=== PATIENT | female | born 1970 | race Caucasian/White ===

== ENCOUNTER 2016-11-12 19:51 | Emergency (ER) | payer OTHER ==
[~2016-11-12] VITALS: Ht 165.1 cm; Wt 107.0 kg
[~2016-11-12 19:51] MED LIST: GABA100C4 PO; NEUR100C PO; QUET100 PO; SERO50TA4 PO
[2016-11-12 19:55] VITALS: BP 141/78; PULSE 130; RESP 18; TEMP 97; O2SAT 97
--- NOTE | 2016-11-13 11:36 | EKG ---
Date Performed: 11/12/2016 Time Performed: 20:30:53 PTAGE: 46 years EKG: Sinus rhythm LOW QRS VOLTAGE IN PRECORDIAL LEADS NONSPECIFIC T-WAVE ABNORMALITY BORDERLINE ECG NO PREVIOUS TRACING DOCTOR: Leonard Ye Interpretating Date/Time 11/13/2016 11:35:34
== END 2016-11-12 21:26 | disposition left against medical advice (07) ==
LOC: NED 19:51
DX: R07.9 Chest pain, unspecified (principal)
CPT/HCPCS: 93005; 99281

== ENCOUNTER 2017-03-20 12:13 | Emergency (ER) | payer OTHER ==
[~2017-03-20] VITALS: Ht 165.1 cm; Wt 110.1 kg
[2017-03-20 12:18] VITALS: BP 141/96; PULSE 93; RESP 16; TEMP 98.3; O2SAT 99
[2017-03-20] MEDS ORDERED: SODIUM CHLOR 0.9% 1000 ML INJ 1,000 ML IV SCH (13:09)
[2017-03-20] MEDS ORDERED: ONDANSETRON HCL 4 MG/2 ML VIAL IVP ONE (13:15)
[2017-03-20] MEDS ORDERED: SODIUM CHLORIDE 0.9% FLUSH 10 ML FLUSH IV FLUSH PRN (13:15)
[2017-03-20 13:28] LABS: AUTOMATED NEUTROPHIL # 3.7 TH/MM3 (1.8-7.7); BASOPHIL % 0.5 % (0.0-2.0); EOSINOPHIL # 0.1 TH/MM3 (0-0.4); EOSINOPHIL % 1.7 % (0.0-4.0); HEMATOCRIT 34.5 % (35.0-46.0); HEMO FLAGS DIFF FINAL; LYMPH % 28.3 % (9.0-44.0); LYMPHOCYTE # 1.8 TH/MM3 (1.0-4.8); MEAN CELL VOLUME 79.2 FL (80.0-100.0); MEAN CORPUSCULAR HEMOGLOBIN 26.8 PG (27.0-34.0); MEAN CORPUSCULAR HGB CONC 33.8 % (32.0-36.0); MONO % 10.7 % (0.0-8.0); NEUT % 58.8 % (16.0-70.0); PLATELET COUNT 306 TH/MM3 (150-450); RED BLOOD COUNT 4.36 MIL/MM3 (4.00-5.30); RED CELL DISTRIBUTION WIDTH 13.1 % (11.6-17.2); WHITE BLOOD COUNT 6.3 TH/MM3 (4.0-11.0)
[2017-03-20 13:36] VITALS: BP 143/81; PULSE 76; RESP 18; O2SAT 99
[2017-03-20 13:37] LABS: GLUCOSE,URINE NEG (NEG); KETONE, URINE NEG (NEG); NITRITE,URINE NEG (NEG); PH, URINE 5.5 (5.0-8.5)
[2017-03-20 13:38] LABS: CHLORIDE 107 MEQ/L (98-107); POTASSIUM 3.7 MEQ/L (3.5-5.1); SODIUM (NA) 141 MEQ/L (136-145)
[2017-03-20 13:42] LABS: ANION GAP 9 MEQ/L (5-15); BICARBONATE 25.4 MEQ/L (21.0-32.0); BLOOD UREA NITROGEN 9 MG/DL (7-18)
[2017-03-20 13:45] LABS: ALT (GPT) 32 U/L (10-53); AST (GOT) 21 U/L (15-37); GLOMERULAR FILTRATION RATE 48 ML/MIN (>89)
[2017-03-20 13:45] LABS: BLOOD, URINE MOD (NEG)
[2017-03-20 13:46] LABS: METHOD OF COLLECTION CLEAN CATCH; URINE COLOR YELLOW (YELLW/STRAW)
[2017-03-20 13:46] LABS: TOTAL BILIRUBIN ADULT 0.2 MG/DL (0.2-1.0)
[2017-03-20 13:47] LABS: BACTERIA, URINE MOD /hpf; COMMENT (UR) CULTURE INDICATED; CULTURE IF INDICATED CULTURE INDICATED; SQUAMOUS EPITHELIAL CELL URINE > 8 /hpf (0-5); WBC, URINE 0-2 /hpf (0-5)
[2017-03-20 13:48] LABS: ALKALINE PHOSPHATASE 64 U/L (45-117); CREATINE KINASE 114 U/L (26-192)
--- NOTE | 2017-03-20 13:50 | RADHPO ---
EXAM DATE/TIME: 03/20/2017 13:26 [facility] COMPARISON: No previous studies available for comparison. INDICATIONS : Patient states she feels her blood pressure isn't right. She hasn't had an appetite for a week. MEDICAL HISTORY : None. SURGICAL HISTORY : Cholecystectomy. ENCOUNTER: Initial ACUITY: 1 week PAIN SCORE: 0/10 LOCATION: Bilateral chest FINDINGS: A single view of the chest demonstrates the lungs to be symmetrically aerated without evidence of mas s, infiltrate or effusion. The cardiomediastinal contours are unremarkable. Osseous structures are intact. CONCLUSION: No acute disease. Lior Lynn MD on March 20, 2017 at 13:48 Board Certified Radiologist. This report was verified electronically.
[2017-03-20] MEDS ORDERED: ZOFR4TAB3 SL (13:57)
[2017-03-20 14:00] LABS: CKMB 0.9 NG/ML (0.5-3.6)
--- NOTE | 2017-03-20 14:00 | PD ---
HPI Chief Complaint: Hypertension Time Seen by Provider: 13:09 Travel History International Travel<30 days: No Contact w/Intl Traveler<30days: No Traveled to known affect area: No History of Present Illness HPI 46-year-old female with history of no significant past medical issues, has seen that her blood pressure has been [facility] presents to the ER today because she states that she has had 3 days history of nausea, intermittent vomiting, diarrhea, epigastric abdominal discomfort which she rates at 0 out of 10 currently. She states that she had some substernal chest discomfort that lasted only a minute and was a 5 out of 10 but has gone away and has not come back yesterday. She denies any shortness of breath, fevers, coughing, or any other symptoms. She does not of any sick contacts or bad food exposure. Modifying Factors: None Associated Signs & Symptoms: Nausea, vomiting, diarrhea, abdominal discomfort, chest discomfort Risk Factors: None PFSH Past Medical History Hx Anticoagulant Therapy: No Anxiety: Yes Depression: Yes Diabetes: No Endocrine: No Genitourinary: No Immune Disorder: No Musculoskeletal: No Neurologic: No Reproductive: No Respiratory: No Immunizations Current: Yes ?: Not Past Surgical History Abdominal Surgery: Yes (gallbladder) Cardiac Surgery: No Cholecystectomy: Yes Ear Surgery: No Endocrine Surgery: No Eye Surgery: No Genitourinary Surgery: No Gynecologic Surgery: No Oral Surgery: No Thoracic Surgery: No Other Surgery: Yes (bunectomy) Social History Alcohol Use: Yes Tobacco Use: No Substance Use: Yes (Marijuana, pt quit 8 months ago) Allergies-Medications (Allergen,Severity, Reaction): Coded Allergies: No Known Allergies (Unverified , 03/20/17) Reported Meds & Prescriptions Reported Meds & Active Scripts Active No Active Prescriptions or Reported Medications Review of Systems Except as stated in HPI: all other systems reviewed are Neg Physical Exam Narrative GENERAL: Well-developed middle age female patient currently in mild distress. Awake and oriented 3. SKIN: Focused skin assessment warm/dry. HEAD: Atraumatic. Normocephalic. EYES: Pupils equal and round. No scleral icterus. No injection or drainage. ENT: No nasal bleeding or discharge. Mucous membranes pink and moist. NECK: Trachea midline. No JVD. CARDIOVASCULAR: Regular rate and rhythm. No murmur appreciated. RESPIRATORY: No accessory muscle use. Clear to auscultation. Breath sounds equal bilaterally. GASTROINTESTINAL: Abdomen soft, non-tender, nondistended. Hepatic and splenic margins not palpable. Benign. MUSCULOSKELETAL: No obvious deformities. No clubbing. No cyanosis. No edema. NEUROLOGICAL: Awake and alert. No obvious cranial nerve deficits. Motor grossly within normal limits. Normal speech. PSYCHIATRIC: Appropriate mood and affect; insight and judgment normal. Data Data Last Documented VS Vital Signs Date Time Temp Pulse Resp B/P Pulse Ox O2 Delivery O2 Flow Rate FiO2 03/20/17 13:36 76 18 143/81 99 Room Air 03/20/17 12:18 98.3 Orders Complete Blood Count With Diff (03/20/17 13:09) Comprehensive Metabolic Panel (03/20/17 13:09) Lipase (03/20/17 13:09) Urinalysis - C+S If Indicated (03/20/17 13:09) Iv Access Insert/Monitor (03/20/17 13:09) Ecg Monitoring (03/20/17 13:09) Oximetry (03/20/17 13:09) Ondansetron Inj (Zofran Inj) (03/20/17 13:15) Sodium Chlor 0.9% 1000 Ml Inj (Ns 1000 M (03/20/17 13:09) Sodium Chloride 0.9% Flush (Ns Flush) (03/20/17 13:15) Electrocardiogram (03/20/17 13:09) Chest, Single Ap (03/20/17 13:09) Ckmb (Isoenzyme) Profile (03/20/17 13:09) Troponin I (03/20/17 13:09) Ed Urine Pregnancytest Poc (03/20/17 13:09) Influenzae A/B Antigen (03/20/17 13:10) Urine Culture (03/20/17 13:25) CKMB (03/20/17 13:22) CKMB% (03/20/17 13:22) Labs Laboratory Tests Test 03/20/17 03/20/17 13:22 13:25 White Blood Count 6.3 TH/MM3 Red Blood Count 4.36 MIL/MM3 Hemoglobin 11.7 GM/DL Hematocrit 34.5 % Mean Corpuscular Volume 79.2 FL Mean Corpuscular Hemoglobin 26.8 PG Mean Corpuscular Hemoglobin 33.8 % Concent Red Cell Distribution Width 13.1 % Platelet Count 306 TH/MM3 Mean Platelet Volume 7.3 FL Neutrophils (%) (Auto) 58.8 % Lymphocytes (%) (Auto) 28.3 % Monocytes (%) (Auto) 10.7 % Eosinophils (%) (Auto) 1.7 % Basophils (%) (Auto) 0.5 % Neutrophils # (Auto) 3.7 TH/MM3 Lymphocytes # (Auto) 1.8 TH/MM3 Monocytes # (Auto) 0.7 TH/MM3 Eosinophils # (Auto) 0.1 TH/MM3 Basophils # (Auto) 0.0 TH/MM3 CBC Comment DIFF FINAL Differential Comment Sodium Level 141 MEQ/L Potassium Level 3.7 MEQ/L Chloride Level 107 MEQ/L Carbon Dioxide Level 25.4 MEQ/L Anion Gap 9 MEQ/L Blood Urea Nitrogen 9 MG/DL Creatinine 1.20 MG/DL Estimat Glomerular Filtration 48 ML/MIN Rate Random Glucose 111 MG/DL Calcium Level 8.5 MG/DL Total Bilirubin 0.2 MG/DL Aspartate Amino Transf 21 U/L (AST/SGOT) Alanine Aminotransferase 32 U/L (ALT/SGPT) Alkaline Phosphatase 64 U/L Total Creatine Kinase 114 U/L Troponin I LESS THAN 0.02 NG/ML Total Protein 7.5 GM/DL Albumin 3.5 GM/DL Lipase 141 U/L Urine Collection Type CLEAN CATCH Urine Color YELLOW Urine Turbidity CLEAR Urine pH 5.5 Urine Specific [place] 1.021 Urine Protein NEG mg/dL Urine Glucose (UA) NEG mg/dL Urine Ketones NEG mg/dL Urine Occult Blood MOD Urine Nitrite NEG Urine Bilirubin NEG Urine Leukocyte Esterase NEG Urine RBC 10-14 /hpf Urine WBC 0-2 /hpf Urine Squamous Epithelial > 8 /hpf Cells Urine Bacteria MOD /hpf Microscopic Urinalysis Comment CULTURE INDICATED Urine Collection Time 13:25 [facility] Medical Decision Making Medical Screen Exam Complete: Yes Emergency Medical Condition: Yes Medical Record Reviewed: Yes Interpretation(s) EKG shows NSR, no ST elevation or depression, and no arrhythmias. No significant T-wave inversions. Laboratory Tests Test 03/20/17 03/20/17 13:22 13:25 Hematocrit 34.5 % (35.0-46.0) Mean Corpuscular Volume 79.2 FL (80.0-100.0) Mean Corpuscular Hemoglobin 26.8 PG (27.0-34.0) Monocytes (%) (Auto) 10.7 % (0.0-8.0) Creatinine 1.20 MG/DL (0.50-1.00) Estimat Glomerular Filtration 48 ML/MIN (>89) Rate Random Glucose 111 MG/DL (74-106) Troponin I LESS THAN 0.02 NG/ML (0.02-0.05) Urine Occult Blood MOD (NEG) Urine RBC 10-14 /hpf (0-3) Urine Squamous Epithelial > 8 /hpf (0-5) Cells Urine Bacteria MOD /hpf (NONE) Differential Diagnosis Nausea, vomiting, diarrhea, abdominal discomfort, elevated blood pressure hypertensive urgency versus dehydration versus renal failure versus gastroenteritis versus metabolic issues Narrative Course Abdomen is fairly benign and I do not suspect an acute intra-abdominal process. She had a fairly atypical sounding chest discomfort yesterday which I do not think is cardiac. EKG does not show any signs of acute ST-T changes or dysrhythmias. Her lab work did not indicate significant metabolic issues. Her vital signs are stable in the ER. Her blood pressures mildly elevated but at this point does not appear to present to the emergency. Patient may have some underlying viral processes causing her current symptoms. She is influenza- negative. She was given IV fluids and nausea medications in the ER. She had no further vomiting episodes. At this point my plan would be to release her with follow-up to primary care physician was to medic relief or nausea and vomiting. She may want to talk to her primary care physician regarding her elevated blood pressure as well for further evaluation. Return for any worsening in symptoms as necessary. The plan has been discussed with her and she states understanding. Diagnosis Primary Impression: Gastroenteritis Additional Impression: High blood pressure Med/Other Pt SpecificInfo: Prescription(s) given Scripts Ondansetron Odt (Zofran Odt)4 Mg Tab4 Mg SL Q6HR PRN (Nausea/Vomiting) #7 TAB Ref 0 Prov:Salma Carmen MD 03/20/17 Disposition: 01 DISCHARGE HOME Condition: Stable Salma Carmen MD March 20, 2017 13:59
[2017-03-20 14:22] VITALS: BP 141/81
--- NOTE | 2017-03-20 15:15 | EKG ---
Date Performed: 03/20/2017 Time Performed: 13:08:54 PTAGE: 46 years EKG: Sinus rhythm Low QRS voltages in precordial leads Borderline ECG NO SIGNIFICANT CHANGE FROM PRIOR ELECTROCARDIOGR AM. PREVIOUS TRACING : 11/12/2016 20.30 DOCTOR: Rodríguez Vicente Interpretating Date/Time 03/20/2017 15:15:09
== END 2017-03-20 14:44 | disposition home or self-care (01) ==
LOC: PHED 12:13
DX: K52.9 Noninfective gastroenteritis and colitis, unspecified (principal); R03.0 Elevated blood-pressure reading, without diagnosis of hypertension; F41.9 Anxiety disorder, unspecified; F32.9 Major depressive disorder, single episode, unspecified
CPT/HCPCS: 71010; 80053; 81001; 82550; 82552; 83690; 84484; 84703; 85025; 87086; 87804; 93005; 96374; 99284; J2405; J7030

== ENCOUNTER 2017-09-28 22:21 | Observation (INO) | payer OTHER ==
[~2017-09-28] VITALS: Ht 165.1 cm; Wt 90.0 kg
[~2017-09-28 22:21] MED LIST changes: -GABA100C4 PO; -NEUR100C PO; -QUET100 PO; -SERO50TA4 PO; +ZOFR4TAB3 SL
[2017-09-28 22:25] VITALS: BP 129/74; PULSE 88; RESP 16; TEMP 98.6; O2SAT 99
[2017-09-28 22:30] VITALS: RESP 16; O2SAT 99
[2017-09-28] MEDS ORDERED: ASPIRIN 325 MG TAB PO ONE (22:30)
[2017-09-28] MEDS ORDERED: SODIUM CHLORIDE 0.9% FLUSH 10 ML FLUSH IVF PRN (22:30)
[2017-09-28] MEDS: NITROGLYCERIN 0.4 MG SL 25 TABS/BTL SL SCH ×3 (22:35→22:44)
--- NOTE | 2017-09-28 22:44 | PD ---
HPI Chief Complaint: Chest Pain Time Seen by Provider: 22:27 Travel History International Travel<30 days: No Contact w/Intl Traveler<30days: No Traveled to known affect area: No History of Present Illness HPI 47-year-old female arrives by EMS due to chest tightness 5/10 in severity which started while she was lying in bed about an hour prior to ER arrival. She reports that the course today she had some vague nausea. Shortly before the onset of the chest tightness she had taken Tums feeling the urge to belch. EMS reports blood pressure to be about 150/90 on scene. Patient received nitroglycerin sprays 3 which reduced the pain severity over 5-4/10. Patient reports some shortness of breath while lying in bed prior to EMS arrival and en route to the ER. She denies currently caring a diagnosis of hypertension hyperlipidemia or diabetes however believes she might have elevated baseline blood sugar. She does not smoke. PFSH Past Medical History Hx Anticoagulant Therapy: No Anxiety: Yes (LAST PANIC ATTACK 4 YEARS AGO) Depression: Yes Diabetes: No Diminished Hearing: No Endocrine: No Genitourinary: No Immune Disorder: No Musculoskeletal: No Neurologic: No Reproductive: No Respiratory: No Immunizations Current: Yes Tetanus Vaccination: Unknown Influenza Vaccination: No ?: Not Past Surgical History Abdominal Surgery: Yes (gallbladder) Cardiac Surgery: No Cholecystectomy: Yes Ear Surgery: No Endocrine Surgery: No Eye Surgery: No Genitourinary Surgery: No Gynecologic Surgery: No Oral Surgery: No Thoracic Surgery: No Other Surgery: Yes (bunectomy) Social History Alcohol Use: Yes Tobacco Use: No Substance Use: Yes (Marijuana, pt quit 8 months ago) Allergies-Medications (Allergen,Severity, Reaction): Coded Allergies: No Known Allergies (Unverified Adverse Reaction, Unknown, 09/28/17) Reported Meds & Prescriptions Reported Meds & Active Scripts Active No Active Prescriptions or Reported Medications Review of Systems Except as stated in HPI: all other systems reviewed are Neg General / Constitutional: No: Fever Cardiovascular: Positive: Chest Pain or Discomfort Respiratory: Positive: Shortness of Breath Physical Exam Narrative GENERAL: 47-year-old female pleasant well-nourished well-developed SKIN: Focused skin assessment warm/dry. HEAD: Atraumatic. Normocephalic. EYES: Pupils equal and round. No scleral icterus. No injection or drainage. ENT: No nasal bleeding or discharge. Mucous membranes pink and moist. NECK: Trachea midline. No JVD. CARDIOVASCULAR: Regular rate and rhythm. No murmur appreciated. RESPIRATORY: No accessory muscle use. Clear to auscultation. Breath sounds equal bilaterally. GASTROINTESTINAL: Abdomen soft, non-tender, nondistended. Hepatic and splenic margins not palpable. MUSCULOSKELETAL: No obvious deformities. No clubbing. No cyanosis. No edema. NEUROLOGICAL: Awake and alert. No obvious cranial nerve deficits. Motor grossly within normal limits. Normal speech. PSYCHIATRIC: Appropriate mood and affect; insight and judgment normal. Data Data Last Documented VS Vital Signs Date Time Temp Pulse Resp B/P (MAP) Pulse Ox O2 Delivery O2 Flow Rate FiO2 09/28/17:30 99 Room Air 09/28/17 22:30 16 09/28/17 22:27 73 09/28/17 22:25 98.6 129/74 (92) Vital signs reviewed Orders Orders Electrocardiogram (09/28/17 22:) Ckmb (Isoenzyme) Profile (09/28/17 22:27) Complete Blood Count With Diff (09/28/17 22:27) Comprehensive Metabolic Panel (09/28/17 22:27) Magnesium (Mg) (09/28/17 22:27) Prothrombin Time / Inr (Pt) (09/28/17 22:27) Act Partial Throm Time (Ptt) (09/28/17 22:27) Troponin I (09/28/17 22:27) Lipase (09/28/17 22:27) Chest, Single Ap (09/28/17 22:27) Ecg Monitoring (09/28/17 22:27) Iv Access Insert/Monitor (09/28/17 22:27) Oximetry (09/28/17 22:27) Oxygen Administration (09/28/17 22:27) Aspirin (Aspirin) (09/28/17 22:30) Sodium Chloride 0.9% Flush (Ns Flush) (09/28/17 22:30) Nitroglycerin Sl (Nitrostat Sl) (09/28/17 22:30) Ct Pulmonary Angiogram (09/28/17 22:39) Iohexol 350 Inj (Omnipaque 350 Inj) (09/28/17 23:58) Place In Observation (09/29/17 00:42) Activity Bed Rest With Brp (09/29/17 00:42) Vital Signs (Adult) Q4H (09/29/17 00:42) Cardiac Rhythm .As Directed (09/29/17 00:42) Notify Dr: Other .PRN (09/29/17 00:42) Notify DrJo Ann Parameters (09/29/17 00:42) Resp Oxygen Nasal Cannula (09/29/17 ) Diet Npo (09/29/17 Breakfast) Ckmb (Isoenzyme) Profile (09/29/17 00:42) Ckmb (Isoenzyme) Profile (09/29/17 03:42) Troponin I (09/29/17 00:42) Troponin I (09/29/17 03:42) Electrocardiogram (09/29/17 00:42) Electrocardiogram (09/29/17 03:42) ^ Obtain (09/29/17 00:42) Sodium Chloride 0.9% Flush (Ns Flush) (09/29/17 00:45) Sodium Chloride 0.9% Flush (Ns Flush) (09/29/17 09:00) Acetamin-Hydrocod 325-7.5 Mg ([place] 7.5 (09/29/17 00:45) Morphine Inj (Morphine Inj) (09/29/17 00:45) Ondansetron Inj (Zofran Inj) (09/29/17 00:45) Nitroglycerin Sl (Nitrostat Sl) (09/29/17 00:45) Aspirin (Aspirin) (09/29/17 09:00) Temazepam (Restoril) (09/29/17 00:45) Alprazolam (Xanax) (09/29/17 00:45) Technology Applications Consultant / Telemetry [id number] (09/29/17 00:42) Admit Order (Ed Use Only) (09/29/17 00:42) Labs Laboratory Tests Test 09/28/17 22:38 White Blood Count 9.3 TH/MM3 Red Blood Count 4.42 MIL/MM3 Hemoglobin 11.5 GM/DL Hematocrit 35.7 % Mean Corpuscular Volume 80.8 FL Mean Corpuscular Hemoglobin 26.1 PG Mean Corpuscular Hemoglobin Concent 32.4 % Red Cell Distribution Width 14.4 % Platelet Count 304 TH/MM3 Mean Platelet Volume 7.6 FL Neutrophils (%) (Auto) 58.4 % Lymphocytes (%) (Auto) 28.5 % Monocytes (%) (Auto) 9.8 % Eosinophils (%) (Auto) 2.4 % Basophils (%) (Auto) 0.9 % Neutrophils # (Auto) 5.5 TH/MM3 Lymphocytes # (Auto) 2.7 TH/MM3 Monocytes # (Auto) 0.9 TH/MM3 Eosinophils # (Auto) 0.2 TH/MM3 Basophils # (Auto) 0.1 TH/MM3 CBC Comment DIFF FINAL Differential Comment Prothrombin Time 10.4 SEC Prothromb Time International Ratio 0.9 RATIO Activated Partial Thromboplast Time 25.5 SEC Blood Urea Nitrogen 12 MG/DL Creatinine 0.91 MG/DL Random Glucose 115 MG/DL Total Protein 7.2 GM/DL Albumin 3.1 GM/DL Calcium Level 8.2 MG/DL Magnesium Level 1.9 MG/DL Alkaline Phosphatase 66 U/L Aspartate Amino Transf (AST/SGOT) 22 U/L Alanine Aminotransferase (ALT/SGPT) 23 U/L Total Bilirubin 0.2 MG/DL Sodium Level 139 MEQ/L Potassium Level 3.8 MEQ/L Chloride Level 109 MEQ/L Carbon Dioxide Level 23.0 MEQ/L Anion Gap 7 MEQ/L Estimat Glomerular Filtration Rate 66 ML/MIN Total Creatine Kinase 58 U/L Troponin I LESS THAN 0.02 NG/ML Lipase 165 U/L MDM Medical Decision Making Medical Screen Exam Complete: Yes Emergency Medical Condition: Yes Medical Record Reviewed: Yes Differential Diagnosis NSTEMI, unstable angina, coronary vasospasm, PE, PTX, aortic dissection, pericarditis, myocarditis, endocarditis, PNA, esophageal disease, aneurysm, musculoskeletal etiologies, anxiety, cocaine/sympathomimetic abuse Narrative Course EKG shows a sinus rhythm with a rate of 80 normal axis intervals CBC & BMP Diagram 09/28/17 22:38 Total Protein 7.2, Albumin 3.1 L, Calcium Level 8.2 L, Magnesium Level 1.9, Alkaline Phosphatase 66, Aspartate Amino Transf (AST/SGOT) 22, Alanine Aminotransferase (ALT/SGPT) 23, Total Bilirubin 0.2 CXR: NACPD Last Impressions CT Angiography 09/28/17 [id number] Signed Impressions: Service Date/Time: Thursday, September 28, 2017 23:59 - CONCLUSION: No pulmonary embolus or other acute cardiopulmonary disease. Royce Serna MD Chest X-Ray 09/28/17 [id number] Signed Impressions: Service Date/Time: Thursday, September 28, 2017 22:44 - CONCLUSION: No evidence of acute cardiopulmonary disease. Royce Serna MD Overall presentation is somewhat concerning for coronary disease and chest pain center evaluation is considered most reasonable step for patient's complaint. Diagnosis Primary Impression: Chest pain Qualified Codes: R07.9 - Chest pain, unspecified Admitting Information Admitting Physician Requests: Observation Scripts No Active Prescriptions or Reported Meds Sang Wong MD Sep 28, 2017 22:44
[2017-09-28 22:50] LABS: AUTOMATED NEUTROPHIL # 5.5 TH/MM3 (1.8-7.7); BASOPHIL # 0.1 TH/MM3 (0-0.2); BASOPHIL % 0.9 % (0.0-2.0); EOSINOPHIL # 0.2 TH/MM3 (0-0.4); EOSINOPHIL % 2.4 % (0.0-4.0); HEMATOCRIT 35.7 % (35.0-46.0); HEMO FLAGS DIFF FINAL; LYMPH % 28.5 % (9.0-44.0); LYMPHOCYTE # 2.7 TH/MM3 (1.0-4.8); MEAN CELL VOLUME 80.8 FL (80.0-100.0); MEAN CORPUSCULAR HEMOGLOBIN 26.1 PG (27.0-34.0); MEAN CORPUSCULAR HGB CONC 32.4 % (32.0-36.0); MONO % 9.8 % (0.0-8.0); NEUT % 58.4 % (16.0-70.0); PLATELET COUNT 304 TH/MM3 (150-450); RED BLOOD COUNT 4.42 MIL/MM3 (4.00-5.30); RED CELL DISTRIBUTION WIDTH 14.4 % (11.6-17.2); WHITE BLOOD COUNT 9.3 TH/MM3 (4.0-11.0)
[2017-09-28 23:00] LABS: APTT (PATIENT) 25.5 SEC (24.3-30.1); INTERNATIONAL NORMALIZED RATIO 0.9 RATIO; PROTHROMBIN TIME - PATIENT 10.4 SEC (9.8-11.6)
[2017-09-28 23:02] LABS: ALT (GPT) 23 U/L (10-53); ANION GAP 7 MEQ/L (5-15); AST (GOT) 22 U/L (15-37); BLOOD UREA NITROGEN 12 MG/DL (7-18); CHLORIDE 109 MEQ/L (98-107); GLOMERULAR FILTRATION RATE 66 ML/MIN (>89); MAGNESIUM 1.9 MG/DL (1.5-2.5); POTASSIUM 3.8 MEQ/L (3.5-5.1); SODIUM (NA) 139 MEQ/L (136-145)
[2017-09-28 23:06] LABS: ALKALINE PHOSPHATASE 66 U/L (45-117); TOTAL BILIRUBIN ADULT 0.2 MG/DL (0.2-1.0)
[2017-09-28 23:07] LABS: CREATINE KINASE 58 U/L (26-192)
[2017-09-28] MEDS ORDERED: IOHEXOL 350 MG/ML 10 ML VIAL (for RAD DIAG) IVCONTRAST ONE (23:58)
--- NOTE | 2017-09-29 00:20 | RADRPT ---
EXAM DATE/TIME: 09/28/2017 22:44 [facility] COMPARISON: No previous studies available for comparison. INDICATIONS : Chest pain. MEDICAL HISTORY : None. SURGICAL HISTORY : Cholecystectomy. ENCOUNTER: Initial ACUITY: 1 day PAIN SCORE: 0/10 LOCATION: Bilateral chest FINDINGS: A single view of the chest demonstrates the lungs to be symmetrically aerated without evidence of mas s, infiltrate or effusion. The cardiomediastinal contours are unremarkable. Osseous structures are intact. CONCLUSION: No evidence of acute cardiopulmonary disease. Royce Serna MD on September 29, 2017 at 0:18 Board Certified Radiologist. This report was verified electronically.
--- NOTE | 2017-09-29 00:22 | RADRPT ---
EXAM DATE/TIME: 09/28/2017 23:59 [facility] COMPARISON: CHEST SINGLE AP, September 28, 2017, 22:44. INDICATIONS : Chest pain. Evaluate for embolism. IV CONTRAST: 75 cc Omnipaque 350 (iohexol) IV RADIATION DOSE: 23.50 CTDIvol (mGy) MEDICAL HISTORY : Cardiovascular disease. Seizures. SURGICAL HISTORY : Cholecystectomy. ENCOUNTER: Initial ACUITY: 1 day PAIN SCALE: 7/10 LOCATION: chest TECHNIQUE: Volumetric scanning of the chest was performed using a pulmonary embolism protocol MIP images were re constructed. Using automated exposure control and adjustment of the mA and/or kV according to patien t size, radiation dose was kept as low as reasonably achievable to obtain optimal diagnostic quality images. DICOM format image data is available electronically for review and comparison. Follow-up recommendations for detected pulmonary nodules are based at a minimum on nodule size and pa tient risk factors according to Fleischner Society Guidelines. FINDINGS: PULMONARY ARTERIES: No filling defects are seen in the pulmonary arteries through the segmental level. LUNGS: There is no consolidation or pneumothorax . No concerning pulmonary nodule is visualized. PLEURAE: There is no pleural thickening or pleural effusion. MEDIASTINUM: There is good visualization of the great vessels of the middle mediastinum. No evidence of mediastin al or hilar adenopathy/mass. MUSCULOSKELETAL: Within normal limits for patient age. MISCELLANEOUS: The visualized upper abdominal organs demonstrate no acute abnormality. CONCLUSION: No pulmonary embolus or other acute cardiopulmonary disease. Royce Serna MD on September 29, 2017 at 0:20 Board Certified Radiologist. This report was verified electronically.
[2017-09-29] MEDS ORDERED: MORPHINE SULFATE 4 MG/ML INJ IV PUSH PRN (00:45)
[2017-09-29] MEDS ORDERED: ALPRAZolam 0.25 MG TAB PO PRN (00:45)
[2017-09-29] MEDS ORDERED: NITROGLYCERIN 0.4 MG SL 25 TABS/BTL SL PRN (00:45)
[2017-09-29] MEDS ORDERED: ONDANSETRON HCL 4 MG/2 ML VIAL IV PUSH PRN (00:45)
[2017-09-29] MEDS ORDERED: SODIUM CHLORIDE 0.9% FLUSH 10 ML FLUSH IV FLUSH PRN (00:45)
[2017-09-29] MEDS ORDERED: TEMAZEPAM 15 MG CAP PO PRN (00:45)
[2017-09-29] MEDS ORDERED: ACETAMINOPHEN/HYDROcodone 325 MG/7.5 MG TAB PO PRN (00:45)
[2017-09-29 01:56] LABS: CREATINE KINASE 53 U/L (26-192)
[2017-09-29 02:20] VITALS: BP 118/60; PULSE 68; RESP 18; TEMP 98.7; O2SAT 98
[2017-09-29 04:32] VITALS: PULSE 82
[2017-09-29 05:46] LABS: CREATINE KINASE 43 U/L (26-192)
[2017-09-29 06:27] VITALS: BP 123/68; PULSE 63; RESP 18; TEMP 98.4; O2SAT 99
[2017-09-29 07:39] VITALS: PULSE 114
[2017-09-29] MEDS ORDERED: ACETAMINOPHEN 500 MG CPLT PO PRN (08:00)
--- NOTE | 2017-09-29 08:32 | HHI.HP ---
HPI Primary Care Physician No Primary Care Physician Chief Complaint Chest pain History of Present Illness 47-year-old female with history of anxiety, panic attacks, and a borderline diabetic presents to emergency room for further evaluation of chest heaviness. Onset 9 PM. Reports laying in bed and developed feelings of ingestion. She took some Tums without relief. She laid down again before developing chest heaviness. Associated symptoms included nausea, followed by disorientation, palpitations, and feeling short of breath. Duration 2 minutes. Denied vomiting or diaphoresis. Endorses past pack attacks although this episode did not feel like her past panic attacks. Became concerned and called [facility]. Currently reports substernal chest to "feel mildly sore." No known precipitating or relieving factors. Review of Systems General: No fatigue,weakness, fever, chills, recent illness, or change in appetite. HEENT: No LOCKE, no nasal congestion or drainage, no dysphasia CV: As stated above. Reporting mild substernal chest soreness. No further palpitations. RESP: No SOB, cough, wheeze, recent URI, or history of asthma. GI: No nausea, vomiting, or bowel changes. No unintentional weight gain or weight loss. : No dysuria, urgency, frequency, or frequent UTI EXT: No lower leg edema, no paraesthesias MS: No discomfort or change in ROM. NEURO: No change in memory, dizziness, difficulty with balance, LOC, motor/ sensory deficits PSYCH: No anxiety, depression, or current situational stress. SKIN: No rashes, no concerning lesions Past Family Social History Allergies: Coded Allergies: No Known Allergies (Unverified Allergy, Unknown, 09/29/17) Past Medical History Anxiety, depression, panic attack, borderline diabetic Past Surgical History Cholecystectomy Reported Medications Reported Meds & Active Scripts Active No Active Prescriptions or Reported Medications Active Ordered Medications Current Medications Medications (Trade) Dose Ordered Sig/[place] Route Start Time Stop Time Status Last Admin (NS Flush) 2 ml UNSCH PRN IVF 09/28/17 22:30 (NS Flush) 2 ml UNSCH PRN IV FLUSH 09/29/17 00:45 (NS Flush) 2 ml BID IV FLUSH 09/29/17 09:00 (Anna 7.5-325 Mg) 1 tab Q4H PRN PO 09/29/17 00:45 (Morphine Inj) 2 mg Q4H PRN IV PUSH 09/29/17 00:45 (Zofran Inj) 4 mg Q6H PRN IV PUSH 09/29/17 00:45 (Nitrostat Sl) 0.4 mg Q5M PRN SL 09/29/17 00:45 (Aspirin) 325 mg DAILY PO 09/29/17 09:00 (Restoril) 15 mg HS PRN PO 09/29/17 00:45 (Xanax) 0.25 mg Q8H PRN PO 09/29/17 00:45 09/29/17 02:11 (Tylenol) 500 mg Q4H PRN PO 09/29/17 08:00 Social History Borderline diabetic. No known hypertension or hyperlipidemia. Lifelong nonsmoker. Denies any alcohol. Endorses a sedentary lifestyle. Single. Past cardiac testing None Physical Exam Vital Signs Vital Signs Date Time Temp Pulse Resp B/P (MAP) Pulse Ox O2 Delivery O2 Flow Rate FiO2 09/29/17 07:39 114 09/29/17 06:27 98.4 63 18 123/68 (86) 99 09/29/17 04:32 82 09/29/17 02:20 98.7 68 18 118/60 (79) 98 09/28/17 22:30 99 Room Air 09/28/17 22:30 16 99 Room Air 09/28/17 22:27 73 09/28/17 22:25 98.6 88 16 129/74 (92) 99 Physical Exam GENERAL: Alert WN, WD, NAD, pleasant, obese female HEAD: NC, AT EYES: Sclera clear, conjunctiva without injection, pupils equal and round ENT: Mucous membranes pink and moist CV: RRR, without murmur, rub, gallop, no JVD, S1-S2 no S3-S4. RESP: Clear lungs throughout bilateral, no crackles, wheeze, rhonchi, symmetrical chest rise, nonlabored, able to speak in full sentences ABD: Soft, NT, ND, no masses, positive bowel tones, obese EXT: Pulses +24, trace pedal edema MS: Normal tone 4 extremities, no obvious deformities, full range of motion NEURO: CN II through CN XII grossly intact, motor strength 5/5 PSYCH: A+O 3, pleasant affect, appropriate speech, appropriate mood and affect , insight and judgment SKIN: Normal turgor, normal texture, no lesions, no rashes, brisk cap refill, even hair distribution Laboratory Laboratory Tests Test 09/28/17 22:38 09/29/17 01:25 09/29/17 04:40 White Blood Count 9.3 Red Blood Count 4.42 Hemoglobin 11.5 Hematocrit 35.7 Mean Corpuscular Volume 80.8 Mean Corpuscular Hemoglobin 26.1 Mean Corpuscular Hemoglobin Concent 32.4 Red Cell Distribution Width 14.4 Platelet Count 304 Mean Platelet Volume 7.6 Neutrophils (%) (Auto) 58.4 Lymphocytes (%) (Auto) 28.5 Monocytes (%) (Auto) 9.8 Eosinophils (%) (Auto) 2.4 Basophils (%) (Auto) 0.9 Neutrophils # (Auto) 5.5 Lymphocytes # (Auto) 2.7 Monocytes # (Auto) 0.9 Eosinophils # (Auto) 0.2 Basophils # (Auto) 0.1 CBC Comment DIFF FINAL Differential Comment Prothrombin Time 10.4 Prothromb Time International Ratio 0.9 Activated Partial Thromboplast Time 25.5 Blood Urea Nitrogen 12 Creatinine 0.91 Random Glucose 115 Total Protein 7.2 Albumin 3.1 Calcium Level 8.2 Magnesium Level 1.9 Alkaline Phosphatase 66 Aspartate Amino Transf (AST/SGOT) 22 Alanine Aminotransferase (ALT/SGPT) 23 Total Bilirubin 0.2 Sodium Level 139 Potassium Level 3.8 Chloride Level 109 Carbon Dioxide Level 23.0 Anion Gap 7 Estimat Glomerular Filtration Rate 66 Total Creatine Kinase 58 53 43 Troponin I LESS THAN 0.02 LESS THAN 0.02 LESS THAN 0.02 Lipase 165 Result Diagram: 09/28/17223709/28/172237 Imaging Last Impressions CT Angiography 09/28/172238 Signed Impressions: Service Date/Time: Thursday, September 28, 2017 23:59 - CONCLUSION: No pulmonary embolus or other acute cardiopulmonary disease. Royce Serna MD Chest X-Ray 09/28/172226 Signed Impressions: Service Date/Time: Thursday, September 28, 2017 22:44 - CONCLUSION: No evidence of acute cardiopulmonary disease. Royce Serna MD Course EKG Sinus rhythm, normal axis, no ST or T-segment changes Caprini VTE Risk Assessment Caprini VTE Risk Assessment: No/Low Risk (score <= 1) Caprini Risk Assessment Model Point Value = 1 Point Value = 2 Point Value = 3 Point Value = 5 Age 41-60 Minor surgery BMI > 25 kg/m2 Swollen legs Varicose veins or History of unexplained or recurrent spontaneous Oral contraceptives or hormone replacement Sepsis (< 1 month) Serious lung disease, including pneumonia (< 1 month) Abnormal pulmonary function Acute myocardial infarction Congestive heart failure (< 1 month) History of inflammatory bowel disease Medical patient at bed rest Age 61-74 Arthroscopic surgery Major open surgery (> 45 min) Laparoscopic surgery (> 45 min) Malignancy Confined to bed (> 72 hours) Immobilizing plaster cast Central venous access Age >= 75 History of VTE Family history of VTE Factor V Leiden Prothrombin [id number] Lupus anticoagulant Anticardiolipin antibodies Elevated serum homocysteine Heparin-induced thrombocytopenia Other congenital or acquired thrombophilia Stroke (< 1 month) Elective arthroplasty Hip, pelvis, or leg fracture Acute spinal cord injury (< 1 month) Prophylaxis Regimen Total Risk Factor Score Risk Level Prophylaxis Regimen 0-1 Low Early ambulation 2 Moderate Order ONE of the following: *Sequential Compression Device (SCD) *Heparin 5000 units SQ BID 3-4 Higher Order ONE of the following medications: *Heparin 5000 units SQ TID *Enoxaparin/Lovenox 40 mg SQ daily (WT < 150 kg, CrCl > 30 mL/min) *Enoxaparin/Lovenox 30 mg SQ daily (WT < 150 kg, CrCl > 10-29 mL/min) *Enoxaparin/Lovenox 30 mg SQ BID (WT < 150 kg, CrCl > 30 mL/min) AND/OR *Sequential Compression Device (SCD) 5 or more Highest Order ONE of the following medications: *Heparin 5000 units SQ TID (Preferred with Epidurals) *Enoxaparin/Lovenox 40 mg SQ daily (WT < 150 kg, CrCl > 30 mL/min) *Enoxaparin/Lovenox 30 mg SQ daily (WT < 150 kg, CrCl > 10-29 mL/min) *Enoxaparin/Lovenox 30 mg SQ BID (WT < 150 kg, CrCl > 30 mL/min) AND *Sequential Compression Device (SCD) Assessment and Plan Assessment and Plan #1 Atypical chest pain-admitted to chest pain center. Ruled out with 3 sets of EKGs, cardiac enzymes, and monitored overnight. Seen and evaluated by Dr. Salomon Newell. Reassurance provided, discomfort highly suggestive of a panic attack. Proceed with chemical stress test. If cardiac testing unremarkable, plans to discharge later this morning with follow-up with PCP. Patient agreeable plan of care. #2 Borderline diabetic-discussed in length importance of decreasing sugar/flour intake, sugary drinks, increasing her daily activity, and working on weight loss. Education provided and made aware diabetes is a progressive disease, therefore all her efforts to reduce progressive of disease highly encouraged. #3 Anxiety-resolved, notify PCP of her arrival to ED keeping scheduled appointment next week Jennifer Kilpatrick Sep 29, 2017 08:32
[2017-09-29] MEDS ORDERED: ASPIRIN 325 MG TAB PO SCH ×2 (09:00)
[2017-09-29] MEDS ORDERED: SODIUM CHLORIDE 0.9% FLUSH 10 ML FLUSH IV FLUSH SCH (09:00)
[2017-09-29 09:53] VITALS: BP 118/62; PULSE 85; RESP 16; TEMP 98; O2SAT 98
--- NOTE | 2017-09-29 11:30 | HHI.DCPOC ---
Discharge Care Plan Diagnosis: (1) Atypical chest pain (2) Situational stress Goals to Promote Your Health * To prevent worsening of your condition and complications * To maintain your health at the optimal level Directions to Meet Your Goals Take your medications as prescribed Follow your dietary instruction Follow activity as directed Keep your appointments as scheduled Take your immunizations and boosters as scheduled If your symptoms worsen call your PCP, if no PCP go to Urgent Care Center or Emergency Room Smoking is Dangerous to Your Health. Avoid second hand smoke Call the 24-hour hour crisis hotline for domestic abuse at Jennifer Kilpatrick Sep 29, 2017 11:30
--- NOTE | 2017-09-29 14:30 | EKG ---
Date Performed: 09/29/2017 Time Performed: 04:56:48 PTAGE: 47 years EKG: Sinus rhythm WITH SINUS ARRHYTHMIA LOW QRS VOLTAGE IN PRECORDIAL LEADS BORDERLINE ECG PREVIOUS TRACING : 09/29/2017 01.24 Since previous tracing, no significant change noted DOCTOR: Salomon Newell Interpretating Date/Time 09/29/2017 14:28:46
--- NOTE | 2017-09-29 14:31 | EKG ---
Date Performed: 09/29/2017 Time Performed: 01:24:40 PTAGE: 47 years EKG: Sinus rhythm WITH SINUS ARRHYTHMIA LOW QRS VOLTAGE IN PRECORDIAL LEADS BORDERLINE ECG PREVIOUS TRACING : 09/28/2017 22.28 Since previous tracing, no significant change noted DOCTOR: Salomon Newell Interpretating Date/Time 09/29/2017 14:30:17
--- NOTE | 2017-09-29 14:31 | EKG ---
Date Performed: 09/28/2017 Time Performed: 22:28:35 PTAGE: 47 years EKG: Sinus rhythm LOW QRS VOLTAGE IN PRECORDIAL LEADS BORDERLINE ECG PREVIOUS TRACING : 09/28/2017 22.28 Since previous tracing, no significant change noted DOCTOR: Salomon Newell Interpretating Date/Time 09/29/2017 14:30:48
--- NOTE | 2017-09-29 14:33 | TR ---
Date Performed: 09/29/2017 Time Performed: 11:06:22 DOCTOR: Salomon Newell DRUG LIST: CLINICAL HISTORY: CHEST PAIN REASON FOR TEST: REASON FOR ENDING: OBSERVATION: CONCLUSION: Martinez protocol completed. Stopped sec to exceeding target heart rate and leg fatigue . Maximum FM=963 Target HR Achieved=98.0% Maximum LT=655/68 Total Exercise Time=5:00. No reprod chest pain. No ectopy. No st t segment changes to sugg ischemia. Good exercise tolerance. Normal bp respon se. Recovery quick and unremarkable. COMMENTS: Patient exercised using the Martinez protocol. No electrocardiographic changes were seen to suggest ischemia. Hemodynamic response to exercise was normal. No significant arrhythmia was prese nt.
== END 2017-09-29 13:03 | disposition home or self-care (01) ==
LOC: NEPC 22:21 → NEDA 09-29 00:44 → NEPGCP 09-29 01:39
DX: R07.9 Chest pain, unspecified (principal); R73.03 Prediabetes; R11.0 Nausea; F41.0 Panic disorder [episodic paroxysmal anxiety]; E66.9 Obesity, unspecified; R94.31 Abnormal electrocardiogram [ECG] [EKG]
CPT/HCPCS: 71010; 71275; 80053; 82550; 83690; 83735; 84484; 85025; 85610; 85730; 93005; 93017; 99285; G0378; Q9967

== ENCOUNTER 2017-11-14 00:27 | Emergency (ER) | payer OTHER ==
[~2017-11-14] VITALS: Ht 165.1 cm; Wt 105.0 kg
[2017-11-14 00:28] VITALS: BP 128/103; PULSE 75; RESP 16; TEMP 98.1; O2SAT 99
--- NOTE | 2017-11-14 01:02 | PD ---
HPI Chief Complaint: Cold / Flu Symptoms Time Seen by Provider: 00:55 Travel History International Travel<30 days: No Contact w/Intl Traveler<30days: No Traveled to known affect area: No History of Present Illness HPI 47-year-old female presents to emergency department for evaluation of cough and chest congestion. Patient states that last week she was diagnosed with the flu from her primary care provider. She was prescribed codeine cough syrup. She states that her cough has progressed and she feels like it is in her chest. She is concerned she may have pneumonia. Has had subjective fever and chills. Denies any nausea, vomiting, diarrhea. She has no other symptoms to report. PFSH Past Medical History Hx Anticoagulant Therapy: No Anxiety: Yes (LAST PANIC ATTACK 4 YEARS AGO) Depression: Yes Heart Rhythm Problems: No Cardiac Catheterization: No Cardiovascular Problems: No High Cholesterol: No Congestive Heart Failure: No Diabetes: No Diminished Hearing: No Endocrine: No Gastrointestinal Disorders: No Genitourinary: No Heparin Induced Thrombocytopen: No Hypertension: No Immune Disorder: No Implanted Vascular Access Dvce: No Musculoskeletal: No Neurologic: No Reproductive: No Respiratory: No Immunizations Current: Yes Tetanus Vaccination: Unknown Influenza Vaccination: No ?: Unknown Past Surgical History Abdominal Surgery: Yes (gallbladder) Cardiac Surgery: No Cholecystectomy: Yes Coronary Artery Bypass Graft: No Ear Surgery: No Endocrine Surgery: No Eye Surgery: No Genitourinary Surgery: No Gynecologic Surgery: No Neurologic Surgery: No Oral Surgery: No Thoracic Surgery: No Other Surgery: Yes (bunectomy) Family History Family Myocardial Infarction: Yes (Brother age 40's) Social History Alcohol Use: Yes Tobacco Use: No Substance Use: Yes (Marijuana, pt quit 8 months ago) Allergies-Medications (Allergen,Severity, Reaction): Coded Allergies: No Known Allergies (Unverified Allergy, Unknown, 11/14/17) Reported Meds & Prescriptions Reported Meds & Active Scripts Active Tessalon Perles (Benzonatate) 100 Mg Cap 200 Mg PO TID PRN Ventolin Hfa 18 GM Inh (Albuterol Sulfate) 90 Mcg/Act Aer 2 Puff INH Q4HR PRN Prednisone 50 Mg Tab 50 Mg PO DAILY 5 Days Review of Systems Except as stated in HPI: all other systems reviewed are Neg Physical Exam Narrative GENERAL: Well-nourished, well-developed male patient in no acute distress. SKIN: Focused skin assessment warm/dry. HEAD: Normocephalic. EYES: No scleral icterus. No injection or drainage. ENT: Mucosa pink and moist. Erythema without exudates. No uvular edema. No uvular, palatal, or tonsillar deviation. Airway patent. Nasal turbinates appear normal without nasal blood, purulent drainage or septal hematoma. NECK: Supple, trachea midline. Mild anterior cervical lymphadenopathy. CARDIOVASCULAR: Regular rate and rhythm without murmurs, gallops, or rubs. RESPIRATORY: Breath sounds coarse but clear to cough, equal bilaterally. No accessory muscle use. GASTROINTESTINAL: Abdomen soft, non-tender, nondistended. MUSCULOSKELETAL: No cyanosis, or edema. BACK: Nontender without obvious deformity. No CVA tenderness. Data Data Last Documented VS Vital Signs Date Time Temp Pulse Resp B/P (MAP) Pulse Ox O2 Delivery O2 Flow Rate FiO2 11/14/17 02:21 11/14/17 01:20 98 21 11/14/17 00:28 98.1 75 16 Room Air Orders Orders Influenzae A/B Antigen (11/14/17 01:07) Group A Rapid Strep Screen (11/14/17 01:07) Dexamethasone Inj (Decadron Inj) (11/14/17 01:15) Albuterol-Ipratropium Neb (Duoneb Neb) (11/14/17 01:15) Chest, Single Ap (11/14/17 ) Strep Culture (Group A) (11/14/17 01:20) Ed Discharge Order (11/14/17 02:04) MDM Medical Decision Making Medical Screen Exam Complete: Yes Emergency Medical Condition: Yes Medical Record Reviewed: Yes Differential Diagnosis Pneumonia versus influenza versus bronchitis versus, cold Narrative Course 47-year-old female presents emergency department for evaluation. Patient appears without distress. Vital signs are stable. She is given a DuoNeb treatment and IM Decadron. Influenza screen as stated. Chest x-ray is negative for acute cardiopulmonary disease. Patient will be treated for viral URI. She is counseled on symptom management. She agrees return immediately with any acute worsening symptoms. Diagnosis Primary Impression: URI (upper respiratory infection) Qualified Codes: J06.9 - Acute upper respiratory infection, unspecified; B97.89 - Other viral agents as the cause of diseases classified elsewhere Referrals: Primary Care Physician Patient Instructions: General Instructions, Upper Respiratory Infection (ED) Additional Instructions: Humidified air may help to alleviate symptoms Tylenol or ibuprofen as directed on the package as needed for fever and/or pain Follow-up with your primary care provider Return immediately with any acute worsening of symptoms Med/Other Pt SpecificInfo: Prescription(s) given Scripts Benzonatate (Tessalon Perles) 100 Mg Cap 200 MG PO TID Y for COUGH, #20 CAP 0 Refills Prov: Monica Davenport 11/14/17 Albuterol 18 GM Inh (Ventolin Hfa 18 GM Inh) 90 Mcg/Act Aer 2 PUFF INH Q4HR Y for SHORTNESS OF BREATH, #1 INHALER 0 Refills Prov: Monica Davenport 11/14/17 Prednisone (Prednisone) 50 Mg Tab 50 MG PO DAILY for 5 Days, #5 TAB 0 Refills Prov: Monica Davenport 11/14/17 Disposition: 01 DISCHARGE HOME Condition: Stable Monica Davenport Nov 14, 2017 01:02
[2017-11-14] MEDS ORDERED: RESP: ALBUTEROL 2.5 MG/IPRATROPIUM 0.5 MG NEB (SCH) NEB ONE (01:15)
[2017-11-14] MEDS ORDERED: DEXAMETHASONE SOD PHOS 4 MG/ML VIAL IM ONE (01:15)
[2017-11-14 01:20] VITALS: O2SAT 98
--- NOTE | 2017-11-14 01:58 | RADRPT ---
EXAM DATE/TIME: 11/14/2017 01:30 [facility] COMPARISON: CHEST SINGLE AP, September 28, 2017, 22:44. INDICATIONS : Patient complains of cough, congestion, and shortness of breath. MEDICAL HISTORY : None. SURGICAL HISTORY : Cholecystectomy. ENCOUNTER: Initial ACUITY: 1 week PAIN SCORE: 0/10 LOCATION: chest FINDINGS: Single AP view of the chest. The lungs are clear. Cardiomediastinal silhouette within normal limits. No evidence of pleural effusion or pneumothorax. CONCLUSION: No acute cardiopulmonary disease identified. Derrick Dao MD on November 14, 2017 at 1:56 Board Certified Radiologist. This report was verified electronically.
[2017-11-14] MEDS ORDERED: VENTAER INH (02:07)
[2017-11-14] MEDS ORDERED: PRED50 PO (02:07)
[2017-11-14] MEDS ORDERED: BENZ100 PO (02:07)
== END 2017-11-14 02:23 | disposition home or self-care (01) ==
LOC: NEPD 00:27
DX: J06.9 Acute upper respiratory infection, unspecified (principal); B97.89 Other viral agents as the cause of diseases classified elsewhere
CPT/HCPCS: 71045; 87081; 87804; 87880; 94664; 96372; 99284; J1100

== ENCOUNTER 2017-11-23 02:57 | Emergency (ER) | payer OTHER ==
[~2017-11-23] VITALS: Ht 162.6 cm; Wt 105.0 kg
[~2017-11-23 02:57] MED LIST changes: +BENZ100 PO; +PRED50 PO; +VENTAER INH; -ZOFR4TAB3 SL
[2017-11-23 02:58] VITALS: BP 154/91; PULSE 97; RESP 18; TEMP 98.6; O2SAT 96
[2017-11-23] MEDS ORDERED: RESP: ALBUTEROL 2.5 MG/IPRATROPIUM 0.5 MG NEB (SCH) NEB ONE (03:30)
[2017-11-23 03:45] VITALS: O2SAT 96
[2017-11-23] MEDS ORDERED: RESP: LIDOCAINE HCL 4% PF 5 ML NEB NEB ONE (03:45)
[2017-11-23] MEDS ORDERED: VENTAER INH (03:55)
[2017-11-23] MEDS ORDERED: PROM6.256 PO (03:55)
--- NOTE | 2017-11-23 03:55 | PD ---
HPI . Respiratory symptoms Chief Complaint: Respiratory Symptoms Time Seen by Provider: 03:21 Travel History International Travel<30 days: No Contact w/Intl Traveler<30days: No Traveled to known affect area: No History of Present Illness HPI 47-year-old female presents with coughing for 4-6 weeks, denies any production of cough, fever chills sweats, night sweats, hemoptysis. Patient denies any significant travel history, confining travel or sedentary period. Denies leg pain or edema. Denies rashes. Patient presents stating she needs a chest x- ray and a work note PFS Past Medical History Narrative Medical Past medical history reviewed Hx Anticoagulant Therapy: No Anxiety: Yes (PANIC ATTACK) Depression: Yes Heart Rhythm Problems: No Cardiac Catheterization: No Cardiovascular Problems: No High Cholesterol: No Congestive Heart Failure: No Diabetes: No Diminished Hearing: No Endocrine: No Gastrointestinal Disorders: No Genitourinary: No Heparin Induced Thrombocytopen: No Hypertension: No Immune Disorder: No Implanted Vascular Access Dvce: No Musculoskeletal: No Neurologic: No Reproductive: No Respiratory: No Immunizations Current: Yes Influenza Vaccination: No ?: Not LMP: EARLY NOV 2017 Past Surgical History Abdominal Surgery: Yes (gallbladder) Cardiac Surgery: No Cholecystectomy: Yes Coronary Artery Bypass Graft: No Ear Surgery: No Endocrine Surgery: No Eye Surgery: No Genitourinary Surgery: No Gynecologic Surgery: No Neurologic Surgery: No Oral Surgery: No Thoracic Surgery: No Other Surgery: Yes (bunectomy) Family History Family Myocardial Infarction: Yes (Brother age 40's) Social History Alcohol Use: Yes Tobacco Use: No Substance Use: No Allergies-Medications (Allergen,Severity, Reaction): Coded Allergies: No Known Allergies (Unverified Allergy, Unknown, 11/23/17) Reported Meds & Prescriptions Reported Meds & Active Scripts Active Ventolin Hfa 18 GM Inh (Albuterol Sulfate) 90 Mcg/Act Aer 2 Puff INH Q4HR PRN Narrative Medication Allergies and medications reviewed Review of Systems Except as stated in HPI: all other systems reviewed are Neg General / Constitutional: No: Fever Eyes: No: Visual changes HENT: No: Headaches Cardiovascular: No: Chest Pain or Discomfort Respiratory: Positive: Cough, No: Shortness of Breath, Wheezing, Orthopnea, Hemoptysis, Stridor, Night Sweats, Pleuritic Pain Gastrointestinal: No: Abdominal Pain Genitourinary: No: Dysuria Musculoskeletal: No: Pain Skin: No Rash Neurologic: No: Weakness Psychiatric: No: Depression Endocrine: No: Polydipsia Hematologic/Lymphatic: No: Easy Bruising Physical Exam Narrative GENERAL: Awake and alert oriented 3 no acute distress. Vital signs afebrile normal and stable SKIN: Warm and dry. Color is normal diaphoresis cyanosis or pallor HEAD: Atraumatic. Normocephalic. EYES: Pupils equal and round. No scleral icterus. No injection or drainage. ENT: No nasal bleeding or discharge. Mucous membranes pink and moist. NECK: Trachea midline. No JVD. Supple full range of motion CARDIOVASCULAR: Regular rate and rhythm. S1-S2 no murmurs or gallops RESPIRATORY: No accessory muscle use. Mild expiratory wheeze. No rhonchi Breath sounds equal bilaterally. GASTROINTESTINAL: Abdomen soft, non-tender, nondistended. Hepatic and splenic margins not palpable. MUSCULOSKELETAL: Extremities without clubbing, cyanosis, or edema. No obvious deformities. NEUROLOGICAL: Awake and alert. No obvious cranial nerve deficits. Motor grossly within normal limits. Five out of 5 muscle strength in the arms and legs. Normal speech. PSYCHIATRIC: Appropriate mood and affect; insight and judgment normal. Data Data Last Documented VS Vital Signs Date Time Temp Pulse Resp B/P (MAP) Pulse Ox O2 Delivery O2 Flow Rate FiO2 11/23/17 03:45 96 21 11/23/17 02:58 98.6 97 18 154/91 (112) Room Air Orders Orders Chest, Single Ap (11/23/17 ) Albuterol-Ipratropium Neb (Duoneb Neb) (11/23/17 03:30) Lidocaine Pf 4% Neb (Lidocaine Pf 4% Neb (11/23/17 03:45) MDM Medical Decision Making Medical Screen Exam Complete: Yes Emergency Medical Condition: Yes Medical Record Reviewed: Yes Differential Diagnosis Bronchitis, viral bronchitis, reactive airway disease Narrative Course Chest x-ray negative for acute infiltrates,Cuffing, or pneumothorax. Cardiac silhouette normal Patient is sitting improvement with DuoNeb and lidocaine nebulized treatments. Discharge Diagnosis Primary Impression: Bronchitis Patient Instructions: Acute Bronchitis (ED), General Instructions Additional Instructions: Up-year-old inhaler 2 puffs every 6 hours as needed for wheezing/cough. Tessalon Perles 100 mg every 8 hours as needed for throat irritation and cough. Codeine cough syrup 1 teaspoon every 8 hours as needed for cough irritation. Follow-up with Dr. Robertson for worsening Scripts Albuterol 18 GM Inh (Ventolin Hfa 18 GM Inh) 90 Mcg/Act Aer 2 PUFF INH Q4-6H Y for SHORTNESS OF BREATH, #1 INHALER 0 Refills Prov: Manuel You MD 11/23/17 Promethazine-Codeine Liq (Promethazine-Codeine Liq) 6.25-10 Mg/5 Ml Syrp 5 ML PO Q6H Y for COUGH AND/OR COLD SYMPTOMS, #60 ML 0 Refills Prov: Manuel You MD 11/23/17 Disposition: 01 DISCHARGE HOME Condition: Stable Manuel You MD Nov 23, 2017 03:55
--- NOTE | 2017-11-23 03:57 | RADRPT ---
EXAM DATE/TIME: 11/23/2017 03:30 [facility] COMPARISON: CHEST SINGLE AP, November 14, 2017, 1:30. INDICATIONS : Cough. MEDICAL HISTORY : None. SURGICAL HISTORY : Cholecystectomy. ENCOUNTER: [facility] ACUITY: 1 month PAIN SCORE: 0/10 LOCATION: Bilateral chest FINDINGS: A single view of the chest demonstrates the lungs to be symmetrically aerated without evidence of mas s, infiltrate or effusion. The cardiomediastinal contours are unremarkable. Osseous structures are intact. CONCLUSION: No acute disease. No significant change has occurred. Nick Garcia MD on November 23, 2017 at 3:55 Board Certified Radiologist. This report was verified electronically.
[2017-11-23] MEDS ORDERED: PROMETHAZINE/CODEINE 6.25 MG/10 MG/5 ML CUP PO ONE (04:15)
== END 2017-11-23 04:27 | disposition home or self-care (01) ==
LOC: NEPE 02:57
DX: J40 Bronchitis, not specified as acute or chronic (principal); F41.9 Anxiety disorder, unspecified; F32.9 Major depressive disorder, single episode, unspecified
CPT/HCPCS: 71045; 94640; 94664; 99284

== ENCOUNTER 2017-12-01 06:43 | Emergency (ER) | payer OTHER ==
[~2017-12-01] VITALS: Ht 175.3 cm; Wt 85.0 kg
[~2017-12-01 06:43] MED LIST changes: -BENZ100 PO; -PRED50 PO; +PROM6.256 PO
[2017-12-01 06:44] VITALS: BP 185/97; PULSE 120; RESP 20; TEMP 98.1; O2SAT 98
--- NOTE | 2017-12-01 08:00 | PD ---
HPI Chief Complaint: Pain: Acute or Chronic Time Seen by Provider: 06:59 Travel History International Travel<30 days: No Contact w/Intl Traveler<30days: No Traveled to known affect area: No History of Present Illness HPI This is a 47-year-old female who presents to the emergency department with left leg pain that is chronic but acutely worsened 1 week ago when she had a fall. Patient reports that in the interim she seen her primary care physician has done x-rays and referred her to orthopedics. She has an orthopedic appointment in 2 days. She describes her pain in her leg is constant, worse with movement, improved with rest making it difficult for her to walk. She says the pain radiates from her low back down her thigh and calf. She has been taking tramadol intermittently but has not been helping and she said last night she was unable to sleep. She also has been continuing to have upper respiratory symptoms and she feels like her medications are making her sicker. PFSH Past Medical History Hx Anticoagulant Therapy: No Anxiety: Yes (PANIC ATTACK) Depression: Yes Heart Rhythm Problems: No Cardiac Catheterization: No Cardiovascular Problems: No High Cholesterol: No Congestive Heart Failure: No Diabetes: No Diminished Hearing: No Endocrine: No Gastrointestinal Disorders: No Genitourinary: No Heparin Induced Thrombocytopen: No Hypertension: No Immune Disorder: No Implanted Vascular Access Dvce: No Musculoskeletal: No Neurologic: No Reproductive: No Respiratory: No Immunizations Current: Yes Tetanus Vaccination: Unknown Influenza Vaccination: No ?: Not LMP: 11/08/17 Past Surgical History Abdominal Surgery: Yes (gallbladder) Cardiac Surgery: No Cholecystectomy: Yes Coronary Artery Bypass Graft: No Ear Surgery: No Endocrine Surgery: No Eye Surgery: No Genitourinary Surgery: No Gynecologic Surgery: No Neurologic Surgery: No Oral Surgery: No Thoracic Surgery: No Other Surgery: Yes (bunectomy) Family History Family Myocardial Infarction: Yes (Brother age 40's) Social History Alcohol Use: Yes (occ) Tobacco Use: No Substance Use: No Allergies-Medications (Allergen,Severity, Reaction): Coded Allergies: No Known Allergies (Unverified Allergy, Unknown, 12/01/17) Reported Meds & Prescriptions Reported Meds & Active Scripts Active Ventolin Hfa 18 GM Inh (Albuterol Sulfate) 90 Mcg/Act Aer 2 Puff INH Q4-6H PRN Promethazine-Codeine Liq 6.25-10 Mg/5 Ml Syrp 5 Ml PO Q6H PRN Ventolin Hfa 18 GM Inh (Albuterol Sulfate) 90 Mcg/Act Aer 2 Puff INH Q4HR PRN Review of Systems Except as stated in HPI: all other systems reviewed are Neg Physical Exam Narrative GENERAL:Well appearing, no acute distress SKIN: Focused skin assessment warm and dry. HEAD: Atraumatic. Normocephalic. EYES: Pupils equal and round. No injection or drainage. ENT: Moist mucous membranes NECK: Trachea midline. CARDIOVASCULAR: Regular rate and rhythm. No murmur appreciated. Left lower extremity is warm and well perfused. RESPIRATORY: Clear to auscultation. Breath sounds equal bilaterally. GASTROINTESTINAL: Abdomen soft, non-tender, nondistended. MUSCULOSKELETAL: Tender to palpation over the left popliteal fossa and left calf with pain with squeezing the calf. Tender to palpation along the lumbar left paraspinal muscles. NEUROLOGICAL: Awake and alert. No obvious cranial nerve deficits. Moving all extremities. PSYCHIATRIC: tearful and anxious Data Data Last Documented VS Vital Signs Date Time Temp Pulse Resp B/P (MAP) Pulse Ox O2 Delivery O2 Flow Rate FiO2 12/01/17 06:44 98.1 120 20 185/97 (126) 98 Orders Orders Us Leg Venous Doppler (12/01/17 ) MDM Medical Decision Making Medical Screen Exam Complete: Yes Emergency Medical Condition: Yes Interpretation(s) Afebrile, tachycardic, hypertensive Ultrasound is negative for DVT Differential Diagnosis DVT, sciatica, muscle sprain Narrative Course This is a 47-year-old female who presents to the emergency department with left leg pain that has been going on worse for 1 week but has been chronic for years. She had x-rays performed by her primary care physician which were reassuring. She has an orthopedic appointment on Friday. She is a normal neurovascular exam. I do not think is necessary to repeat plain films. US was obtained which was negative for DVT. She will be discharged with a knee immobilizer and crutches. Diagnosis Primary Impression: Leg pain Qualified Codes: M79.605 - Pain in left leg Patient Instructions: General Instructions Additional Instructions: If you develop severe leg pain, numbness, weakness, fevers or inability to walk return to the emergency department. Follow-up with orthopedics at your scheduled appointment. Med/Other Pt SpecificInfo: No Change to Meds Disposition: 01 DISCHARGE HOME Condition: Stable Christine Navarro MD Dec 01, 2017 08:00
--- NOTE | 2017-12-01 08:25 | RADRPT ---
EXAM DATE/TIME: 12/01/2017 07:35 [facility] COMPARISON: No previous studies available for comparison. INDICATIONS : Left leg pain. MEDICAL HISTORY : Left leg pain. SURGICAL HISTORY : Cholecystectomy. Collor bone fracture repair. Bunionectomy. ENCOUNTER: Initial ACUITY: 3 days PAIN SCORE: 4/10 LOCATION: Left leg. TECHNIQUE: Venous ultrasound of the leg was performed from the inguinal ligament to the proximal calf. Real-neeraj e, color Doppler and spectral tracing, compression and augmentation techniques were used. FINDINGS: There is normal compressibility of the deep venous system from the inguinal region to the proximal ca lf. No echogenic clot is seen in the lumen of the common femoral, femoral, popliteal, and posterior tibial veins. There is a normal response of the venous system to proximal and distal augmentation an d respiration. CONCLUSION: 1. No DVT identified within the left lower extremity. Sang Schuler MD on December 01, 2017 at 8:22 Board Certified Radiologist. This report was verified electronically.
[2017-12-01 09:20] VITALS: BP 178/86
== END 2017-12-01 09:24 | disposition home or self-care (01) ==
LOC: NEPE 06:43
DX: M79.605 Pain in left leg (principal)
CPT/HCPCS: 93971; 99284; E0113

== ENCOUNTER 2017-12-03 19:01 | Emergency (ER) | payer OTHER ==
[~2017-12-03] VITALS: Ht 165.1 cm; Wt 104.5 kg
[2017-12-03 19:04] VITALS: BP 170/102; PULSE 120; RESP 16; TEMP 98.9; O2SAT 99
[2017-12-03 19:42] VITALS: BP 134/117; PULSE 121; RESP 20; O2SAT 100
[2017-12-03 19:53] VITALS: BP 139/99; PULSE 113; O2SAT 100
[2017-12-03] MEDS ORDERED: TRAM50TA PO (19:57)
[2017-12-03] MEDS ORDERED: BUSP10TA PO (19:57)
[2017-12-03 20:33] LABS: BASOPHIL % 0.6 % (0.0-2.0); EOSINOPHIL # 0.2 TH/MM3 (0-0.4); EOSINOPHIL % 2.5 % (0.0-4.0); HEMATOCRIT 39.3 % (35.0-46.0); HEMOGLOBIN 12.9 GM/DL (11.6-15.3); LYMPH % 20.4 % (9.0-44.0); LYMPHOCYTE # 1.5 TH/MM3 (1.0-4.8); MEAN CELL VOLUME 79.5 FL (80.0-100.0); MEAN CORPUSCULAR HEMOGLOBIN 26.2 PG (27.0-34.0); MEAN PLATELET VOLUME 7.7 FL (7.0-11.0); MONO % 8.6 % (0.0-8.0); MONOCYTE # 0.6 TH/MM3 (0-0.9); NEUT % 67.9 % (16.0-70.0); PLATELET COUNT 318 TH/MM3 (150-450); RED BLOOD COUNT 4.94 MIL/MM3 (4.00-5.30); RED CELL DISTRIBUTION WIDTH 13.9 % (11.6-17.2); WHITE BLOOD COUNT 7.3 TH/MM3 (4.0-11.0)
[2017-12-03 20:44] LABS: ALBUMIN 4.3 GM/DL (3.4-5.0); ALT (GPT) 35 U/L (10-53); AST (GOT) 25 U/L (15-37); BICARBONATE 24.1 MEQ/L (21.0-32.0); BLOOD UREA NITROGEN 9 MG/DL (7-18); CALCIUM 9.5 MG/DL (8.5-10.1); CHLORIDE 104 MEQ/L (98-107); GLOMERULAR FILTRATION RATE 67 ML/MIN (>89); GLUCOSE,RANDOM 90 MG/DL (74-106); SODIUM (NA) 136 MEQ/L (136-145)
[2017-12-03] MEDS ORDERED: RESP: LIDOCAINE HCL 4% PF 5 ML NEB NEB ONE (20:45)
[2017-12-03] MEDS ORDERED: LORazepam 2 MG/ML VIAL IV PUSH ONE ×2 (20:45→22:30)
[2017-12-03] MEDS ORDERED: RESP: ALBUTEROL 2.5 MG/IPRATROPIUM 0.5 MG NEB (SCH) NEB ONE (20:45)
[2017-12-03 20:55] LABS: ALKALINE PHOSPHATASE 66 U/L (45-117); TOTAL BILIRUBIN ADULT 0.2 MG/DL (0.2-1.0)
[2017-12-03 21:13] VITALS: BP 136/70; PULSE 87; RESP 22; O2SAT 100
[2017-12-03] MEDS ORDERED: diphenhydrAMINE HCL 50 MG/ML VIAL IV PUSH ONE (22:30)
--- NOTE | 2017-12-03 22:57 | RADRPT ---
EXAM DATE/TIME: 12/03/2017 21:51 [facility] COMPARISON: No previous studies available for comparison. INDICATIONS : Cough, chest pain MEDICAL HISTORY : None. SURGICAL HISTORY : Cholecystectomy. ENCOUNTER: Initial ACUITY: 1 day PAIN SCORE: 5/10 LOCATION: Bilateral chest FINDINGS: A single view of the chest demonstrates the lungs to be symmetrically aerated without evidence of mas s, infiltrate or effusion. The cardiomediastinal contours are unremarkable. Osseous structures are intact. CONCLUSION: No acute disease. Rey Samuels MD on December 03, 2017 at 22:55 Board Certified Radiologist. This report was verified electronically.
[2017-12-03 22:59] VITALS: BP 130/101; PULSE 87; RESP 18; O2SAT 100
--- NOTE | 2017-12-03 23:43 | PD ---
HPI . Anxiety Chief Complaint: Anxiety Time Seen by Provider: 19:58 Travel History International Travel<30 days: No Contact w/Intl Traveler<30days: No Traveled to known affect area: No History of Present Illness HPI 39-year-old female who presents with overwhelming anxiety. Patient notes multiple social stressors at her job at home, and with her health lately secondary to a prolonged upper respiratory infection. Patient states that she was previously on medications for her Polar disease, however the patient states she does not have bipolar like her mother, and voluntarily took herself off medications within the past year. Patient has no homicidal or suicidal ideations, but does note that she is been feeling paranoid lately as well. Patient notes persistent cough and wheezing consistent with complaints above persistent upper respiratory infection. Patient denies any production of cough or any fever. Patient is a nonsmoker [facility] Past Medical History Narrative Medical Past medical history reviewed Hx Anticoagulant Therapy: No Bipolar Disorder: Yes (questionable) Anxiety: Yes (PANIC ATTACK) Depression: Yes Heart Rhythm Problems: No Cardiac Catheterization: No Cardiovascular Problems: No High Cholesterol: No Congestive Heart Failure: No Diabetes: No Diminished Hearing: No Endocrine: No Gastrointestinal Disorders: No Genitourinary: No Headaches: Yes Heparin Induced Thrombocytopen: No Hypertension: No Immune Disorder: No Implanted Vascular Access Dvce: No Musculoskeletal: No Neurologic: No Psychiatric: Yes Reproductive: No Respiratory: No Immunizations Current: Yes Tetanus Vaccination: > 5 Years Influenza Vaccination: No ?: Not Past Surgical History Abdominal Surgery: Yes (gallbladder) Cardiac Surgery: No Cholecystectomy: Yes Coronary Artery Bypass Graft: No Ear Surgery: No Endocrine Surgery: No Eye Surgery: No Genitourinary Surgery: No Gynecologic Surgery: No Neurologic Surgery: No Oral Surgery: No Thoracic Surgery: No Other Surgery: Yes (bunectomy) Family History Family Myocardial Infarction: Yes (Brother age 40's) Social History Alcohol Use: Yes (occ) Tobacco Use: No Substance Use: No Allergies-Medications (Allergen,Severity, Reaction): Coded Allergies: No Known Allergies (Unverified Allergy, Unknown, 12/01/17) Reported Meds & Prescriptions Reported Meds & Active Scripts Active Ventolin Hfa 18 GM Inh (Albuterol Sulfate) 90 Mcg/Act Aer 2 Puff INH Q4-6H PRN Promethazine-Codeine Liq 6.25-10 Mg/5 Ml Syrp 5 Ml PO Q6H PRN Reported Tramadol (Tramadol HCl) 50 Mg Tab 50 Mg PO Q6H PRN Buspirone (Buspirone HCl) 10 Mg Tab 10 Mg PO BID Narrative Medication Allergies and medications reviewed Review of Systems Except as stated in HPI: all other systems reviewed are Neg General / Constitutional: No: Fever Eyes: No: Visual changes HENT: No: Headaches Cardiovascular: No: Chest Pain or Discomfort Respiratory: Positive: Cough, Wheezing, No: Shortness of Breath Gastrointestinal: No: Abdominal Pain Genitourinary: No: Dysuria Musculoskeletal: No: Pain Skin: No Rash Neurologic: No: Weakness Psychiatric: Positive: Anxiety, No: Depression, Suicidal Ideations, Disorder of Thought, Mood Disorder, Substance Abuse, Homicidal Ideation Endocrine: No: Polydipsia Hematologic/Lymphatic: No: Easy Bruising Physical Exam Narrative GENERAL: Awake and alert, oriented 3, anxious but in no acute distress. Oxygen saturation 97% on room air SKIN: Warm and dry. Color is normal diaphoresis cyanosis or pallor HEAD: Atraumatic. Normocephalic. EYES: Pupils equal and round. No scleral icterus. No injection or drainage. ENT: No nasal bleeding or discharge. Mucous membranes pink and moist. NECK: Trachea midline. No JVD. Supple full range of motion no stridor CARDIOVASCULAR: Regular rate and rhythm. S1-S2 no murmurs rubs or gallops RESPIRATORY: No accessory muscle use. Clear to auscultation. Breath sounds equal bilaterally. GASTROINTESTINAL: Abdomen soft, non-tender, nondistended. Hepatic and splenic margins not palpable. MUSCULOSKELETAL: Extremities without clubbing, cyanosis, or edema. No obvious deformities. NEUROLOGICAL: Awake and alert. No obvious cranial nerve deficits. Motor grossly within normal limits. Five out of 5 muscle strength in the arms and legs. Normal speech. PSYCHIATRIC: Patient is very anxious with pressured speech. Patient has flight of ideas and paranoid delusions. Denies homicidal or suicidal ideations. Data Data Last Documented VS Vital Signs Date Time Temp Pulse Resp B/P (MAP) Pulse Ox O2 Delivery O2 Flow Rate FiO2 12/03/17 22:59 87 18 130/101 (111) 100 Room Air 12/03/17 19:04 98.9 Orders Orders Complete Blood Count With Diff (12/03/17 19:18) Comprehensive Metabolic Panel (12/03/17 19:18) Thyroid Stimulating Hormone (12/03/17 19:18) Psych Screen (12/03/17 19:18) Drug Screen, Random Urine (12/03/17 19:18) Alcohol (Ethanol) (12/03/17 19:18) Lorazepam Inj (Ativan Inj) (12/03/17 20:45) Albuterol-Ipratropium Neb (Duoneb Neb) (12/03/17 20:45) Lidocaine Pf 4% Neb (Lidocaine Pf 4% Neb (12/03/17 20:45) Chest, Single Ap (12/03/17 ) D-Dimer (12/03/17 22:27) Lorazepam Inj (Ativan Inj) (12/03/17 22:30) Diphenhydramine Inj (Benadryl Inj) (12/03/17 22:30) Labs Laboratory Tests Test 12/03/17 19:56 12/03/17 20:07 12/03/17 22:35 White Blood Count 7.3 TH/MM3 Red Blood Count 4.94 MIL/MM3 Hemoglobin 12.9 GM/DL Hematocrit 39.3 % Mean Corpuscular Volume 79.5 FL Mean Corpuscular Hemoglobin 26.2 PG Mean Corpuscular Hemoglobin Concent 33.0 % Red Cell Distribution Width 13.9 % Platelet Count 318 TH/MM3 Mean Platelet Volume 7.7 FL Neutrophils (%) (Auto) 67.9 % Lymphocytes (%) (Auto) 20.4 % Monocytes (%) (Auto) 8.6 % Eosinophils (%) (Auto) 2.5 % Basophils (%) (Auto) 0.6 % Neutrophils # (Auto) 5.0 TH/MM3 Lymphocytes # (Auto) 1.5 TH/MM3 Monocytes # (Auto) 0.6 TH/MM3 Eosinophils # (Auto) 0.2 TH/MM3 Basophils # (Auto) 0.0 TH/MM3 CBC Comment DIFF FINAL Differential Comment Blood Urea Nitrogen 9 MG/DL Creatinine 0.90 MG/DL Random Glucose 90 MG/DL Total Protein 9.0 GM/DL Albumin 4.3 GM/DL Calcium Level 9.5 MG/DL Alkaline Phosphatase 66 U/L Aspartate Amino Transf (AST/SGOT) 25 U/L Alanine Aminotransferase (ALT/SGPT) 35 U/L Total Bilirubin 0.2 MG/DL Sodium Level 136 MEQ/L Potassium Level 3.3 MEQ/L Chloride Level 104 MEQ/L Carbon Dioxide Level 24.1 MEQ/L Anion Gap 8 MEQ/L Estimat Glomerular Filtration Rate 67 ML/MIN Thyroid Stimulating Hormone 3rd Gen 1.030 uIU/ML Ethyl Alcohol Level LESS THAN 3 MG/DL Urine Opiates Screen NEG Urine Barbiturates Screen NEG Urine Amphetamines Screen NEG Urine Benzodiazepines Screen NEG Urine Cocaine Screen NEG Urine Cannabinoids Screen NEG D-Dimer Quantitative (PE/DVT) 0.41 MG/L [facility] Medical Decision Making Medical Screen Exam Complete: Yes Emergency Medical Condition: Yes Medical Record Reviewed: Yes Differential Diagnosis Upper respiratory infection, acute bronchitis, anxiety disorder, bipolar with manic phase, paranoid delusions Narrative Course Laboratory examinations reviewed, patient treated for mild upper respiratory infection. Patient required multiple aliquots of benzodiazepines accompanied with Benadryl IV for anxiety. Patient now resting comfortably Medical clear for psychiatric evaluation Diagnosis Primary Impression: Upper respiratory infection Qualified Codes: J06.9 - Acute upper respiratory infection, unspecified Additional Impressions: Anxiety Paranoid delusion Manuel You MD Dec 03, 2017 23:43
[2017-12-04 06:18] VITALS: BP 142/78; PULSE 97; RESP 22; O2SAT 100
== END 2017-12-04 12:52 | disposition left against medical advice (07) ==
LOC: NEPE 19:01
DX: J06.9 Acute upper respiratory infection, unspecified (principal); F41.9 Anxiety disorder, unspecified; F22 Delusional disorders; F23 Brief psychotic disorder; F31.9 Bipolar disorder, unspecified; Z79.51 Long term (current) use of inhaled steroids; Z79.899 Other long term (current) drug therapy
CPT/HCPCS: 71045; 80053; 80307; 84443; 85025; 85379; 94664; 96374; 96375; 99284; J1200; J2060

== ENCOUNTER 2018-01-17 05:25 | Emergency (ER) | payer OTHER ==
[~2018-01-17 05:25] MED LIST changes: +BUSP10TA PO; +TRAM50TA PO
[2018-01-17 05:28] VITALS: BP 132/83; PULSE 83; RESP 16; TEMP 97.3; O2SAT 99
--- NOTE | 2018-01-17 05:57 | PD ---
HPI Chief Complaint: Respiratory Symptoms Time Seen by Provider: 05:50 Travel History International Travel<30 days: No Contact w/Intl Traveler<30days: No Traveled to known affect area: No History of Present Illness HPI 47-year-old female patient with history of anxiety attacks, presents to the ER today because she states that she has been waking up at night, feeling like something is choking her, having shortness of breath. She states it happens mostly at night. She denies any coughing, fevers, or other issues. She also states that she has been having some left shoulder discomfort, states that she has been evicted from her home and was lifting a lot of heavy boxes. She states that she is very stressed out, states that her mother was put in a senior care, her stepfather is very sick, and states multiple life stressors. Modifying Factors: None Associated Signs & Symptoms: Anxiety, stress, shortness of breath, chest discomfort Risk Factors: History of anxiety attacks PFSH Past Medical History Hx Anticoagulant Therapy: No Bipolar Disorder: Yes Anxiety: Yes (PANIC ATTACK) Depression: Yes Heart Rhythm Problems: No Cardiac Catheterization: No Cardiovascular Problems: No High Cholesterol: No Congestive Heart Failure: No Diabetes: No Diminished Hearing: No Endocrine: No Gastrointestinal Disorders: No Genitourinary: No Headaches: Yes Heparin Induced Thrombocytopen: No Hypertension: No Immune Disorder: No Implanted Vascular Access Dvce: No Musculoskeletal: No Neurologic: No Psychiatric: Yes Reproductive: No Respiratory: No Immunizations Current: Yes ?: Not Past Surgical History Abdominal Surgery: Yes (gallbladder) Cardiac Surgery: No Cholecystectomy: Yes Coronary Artery Bypass Graft: No Ear Surgery: No Endocrine Surgery: No Eye Surgery: No Genitourinary Surgery: No Gynecologic Surgery: No Neurologic Surgery: No Oral Surgery: No Thoracic Surgery: No Other Surgery: Yes (bunectomy) Family History Family Myocardial Infarction: Yes (Brother age 40's) Social History Alcohol Use: Yes (occ) Tobacco Use: No Substance Use: No Allergies-Medications (Allergen,Severity, Reaction): Coded Allergies: No Known Allergies (Unverified Allergy, Unknown, 01/17/18) Reported Meds & Prescriptions Reported Meds & Active Scripts Active Ventolin Hfa 18 GM Inh (Albuterol Sulfate) 90 Mcg/Act Aer 2 Puff INH Q4-6H PRN Reported Buspirone (Buspirone HCl) 10 Mg Tab 10 Mg PO BID Review of Systems Except as stated in HPI: all other systems reviewed are Neg Physical Exam Narrative GENERAL: Well-developed middle-aged female patient currently in mild distress. Fairly anxious, tearful on discussing her issues. Awake and oriented 3. SKIN: Focused skin assessment warm/dry. HEAD: Atraumatic. Normocephalic. EYES: Pupils equal and round. No scleral icterus. No injection or drainage. ENT: No nasal bleeding or discharge. Mucous membranes pink and moist. NECK: Trachea midline. No JVD. Supple. CARDIOVASCULAR: Regular rate and rhythm. No murmur appreciated. Pulses are present and equal bilaterally. RESPIRATORY: No accessory muscle use. Clear to auscultation. Breath sounds equal bilaterally. GASTROINTESTINAL: Abdomen soft, non-tender, nondistended. Hepatic and splenic margins not palpable. MUSCULOSKELETAL: No obvious deformities. No clubbing. No cyanosis. No edema. NEUROLOGICAL: Awake and alert. No obvious cranial nerve deficits. Motor grossly within normal limits. Normal speech. PSYCHIATRIC: Anxious mood and affect; insight and judgment normal. Data Data Last Documented VS Vital Signs Date Time Temp Pulse Resp B/P (MAP) Pulse Ox O2 Delivery O2 Flow Rate FiO2 01/17/18 06:01 18 98 Room Air 01/17/18 05:28 97.3 83 132/83 (99) Orders Orders Complete Blood Count With Diff (01/17/18 05:50) Comprehensive Metabolic Panel (01/17/18 05:50) B-Type Natriuretic Peptide (01/17/18 05:50) D-Dimer (01/17/18 05:50) Troponin I (01/17/18 05:50) Iv Access Insert/Monitor (01/17/18 05:50) Electrocardiogram (01/17/18 05:50) Ecg Monitoring (01/17/18 05:50) Oximetry (01/17/18 05:50) Oxygen Administration (01/17/18 05:50) Chest, Single Ap (01/17/18 05:50) Sodium Chloride 0.9% Flush (Ns Flush) (01/17/18 06:00) Lorazepam (Ativan) (01/17/18 06:00) Labs Laboratory Tests Test 01/17/18 05:56 White Blood Count 6.7 TH/MM3 Red Blood Count 4.53 MIL/MM3 Hemoglobin 11.8 GM/DL Hematocrit 35.8 % Mean Corpuscular Volume 79.0 FL Mean Corpuscular Hemoglobin 26.1 PG Mean Corpuscular Hemoglobin Concent 33.0 % Red Cell Distribution Width 14.5 % Platelet Count 351 TH/MM3 Mean Platelet Volume 7.5 FL Neutrophils (%) (Auto) 63.7 % Lymphocytes (%) (Auto) 22.6 % Monocytes (%) (Auto) 10.3 % Eosinophils (%) (Auto) 2.9 % Basophils (%) (Auto) 0.5 % Neutrophils # (Auto) 4.3 TH/MM3 Lymphocytes # (Auto) 1.5 TH/MM3 Monocytes # (Auto) 0.7 TH/MM3 Eosinophils # (Auto) 0.2 TH/MM3 Basophils # (Auto) 0.0 TH/MM3 CBC Comment DIFF FINAL Differential Comment Blood Urea Nitrogen 9 MG/DL Creatinine 0.84 MG/DL Random Glucose 103 MG/DL Albumin 3.5 GM/DL Calcium Level 8.6 MG/DL Aspartate Amino Transf (AST/SGOT) 18 U/L Alanine Aminotransferase (ALT/SGPT) 24 U/L Sodium Level 137 MEQ/L Potassium Level 3.7 MEQ/L Chloride Level 106 MEQ/L Carbon Dioxide Level 23.9 MEQ/L Anion Gap 7 MEQ/L Estimat Glomerular Filtration Rate 72 ML/MIN [facility] Medical Decision Making Medical Screen Exam Complete: Yes Emergency Medical Condition: Yes Medical Record Reviewed: Yes Interpretation(s) EKG shows NSR, no ST elevation or depression, and no arrhythmias. No significant T-wave inversions. Laboratory Tests Test 01/17/18 05:56 Mean Corpuscular Volume 79.0 FL (80.0-100.0) Mean Corpuscular Hemoglobin 26.1 PG (27.0-34.0) Monocytes (%) (Auto) 10.3 % (0.0-8.0) Estimat Glomerular Filtration Rate 72 ML/MIN (>89) Differential Diagnosis Anxiety attack versus dysrhythmias versus ACS Narrative Course EKG did not show dysrhythmias or ST changes. She appears to be having an acute panic attack especially with the story of social issues as well. She was given Ativan in the ER. Vital signs are stable. Chest x-ray did not show any signs of acute pulmonary processes. Physician Communication Physician Communication Case is signed out to Dr. García at 7 AM pending lab work and reevaluation after Ativan. Diagnosis Primary Impression: Panic attack Condition: Stable Salma Carmen MD Jan 17, 2018 05:56
[2018-01-17] MEDS ORDERED: SODIUM CHLORIDE 0.9% FLUSH 10 ML FLUSH IVF PRN (06:00)
[2018-01-17] MEDS ORDERED: LORazepam 0.5 MG TAB PO ONE (06:00)
[2018-01-17 06:01] VITALS: RESP 18; O2SAT 98
--- NOTE | 2018-01-17 06:24 | RADRPT ---
EXAM DATE/TIME: 01/17/2018 06:07 [facility] COMPARISON: No previous studies available for comparison. INDICATIONS : Difficult to breath, left clavicle pain, and left shoulder pain. MEDICAL HISTORY : None. SURGICAL HISTORY : Cholecystectomy. ENCOUNTER: Initial ACUITY: 3 months PAIN SCORE: 0/10 LOCATION: Bilateral chest FINDINGS: A single view of the chest demonstrates the lungs to be symmetrically aerated without evidence of mas s, infiltrate or effusion. The cardiomediastinal contours are unremarkable. Osseous structures are intact. CONCLUSION: No evidence of acute cardiopulmonary disease. Royce Serna MD on January 17, 2018 at 6:22 Board Certified Radiologist. This report was verified electronically.
[2018-01-17 06:37] LABS: AUTOMATED NEUTROPHIL # 4.3 TH/MM3 (1.8-7.7); BASOPHIL % 0.5 % (0.0-2.0); EOSINOPHIL # 0.2 TH/MM3 (0-0.4); EOSINOPHIL % 2.9 % (0.0-4.0); HEMATOCRIT 35.8 % (35.0-46.0); HEMOGLOBIN 11.8 GM/DL (11.6-15.3); LYMPH % 22.6 % (9.0-44.0); LYMPHOCYTE # 1.5 TH/MM3 (1.0-4.8); MEAN CORPUSCULAR HEMOGLOBIN 26.1 PG (27.0-34.0); MEAN PLATELET VOLUME 7.5 FL (7.0-11.0); MONO % 10.3 % (0.0-8.0); MONOCYTE # 0.7 TH/MM3 (0-0.9); NEUT % 63.7 % (16.0-70.0); PLATELET COUNT 351 TH/MM3 (150-450); RED BLOOD COUNT 4.53 MIL/MM3 (4.00-5.30); RED CELL DISTRIBUTION WIDTH 14.5 % (11.6-17.2); WHITE BLOOD COUNT 6.7 TH/MM3 (4.0-11.0)
[2018-01-17 06:54] LABS: ALBUMIN 3.5 GM/DL (3.4-5.0); ALT (GPT) 24 U/L (10-53); AST (GOT) 18 U/L (15-37); BICARBONATE 23.9 MEQ/L (21.0-32.0); BLOOD UREA NITROGEN 9 MG/DL (7-18); CALCIUM 8.6 MG/DL (8.5-10.1); CHLORIDE 106 MEQ/L (98-107); CREATININE 0.84 MG/DL (0.50-1.00); GLOMERULAR FILTRATION RATE 72 ML/MIN (>89); GLUCOSE,RANDOM 103 MG/DL (74-106); SODIUM (NA) 137 MEQ/L (136-145)
[2018-01-17 06:58] LABS: ALKALINE PHOSPHATASE 63 U/L (45-117); TOTAL BILIRUBIN ADULT 0.2 MG/DL (0.2-1.0); TOTAL PROTEIN 7.4 GM/DL (6.4-8.2); TROPONIN I LESS THAN 0.02 NG/ML (0.02-0.05)
--- NOTE | 2018-01-17 07:09 | PD ---
Physical Exam Date Seen by Provider: Jan 17, 2018 Time Seen by Provider: 07:07 Narrative The patient is a 47-year-old female who was initially evaluated by the previous physician. Please refer to the initial history, physical, diagnostic evaluation , and treatment modality plan. The patient was signed out at 7 AM with d-dimer pending. Data Data Last Documented VS Vital Signs Date Time Temp Pulse Resp B/P (MAP) Pulse Ox O2 Delivery O2 Flow Rate FiO2 01/17/18 06:01 18 98 Room Air 01/17/18 05:28 97.3 83 132/83 (99) Orders Orders Complete Blood Count With Diff (01/17/18 05:50) Comprehensive Metabolic Panel (01/17/18 05:50) B-Type Natriuretic Peptide (01/17/18 05:50) D-Dimer (01/17/18 05:50) Troponin I (01/17/18 05:50) Iv Access Insert/Monitor (01/17/18 05:50) Electrocardiogram (01/17/18 05:50) Ecg Monitoring (01/17/18 05:50) Oximetry (01/17/18 05:50) Oxygen Administration (01/17/18 05:50) Chest, Single Ap (01/17/18 05:50) Sodium Chloride 0.9% Flush (Ns Flush) (01/17/18 06:00) Lorazepam (Ativan) (01/17/18 06:00) Shoulder, Limited(2vws) (01/17/18 ) Labs Laboratory Tests Test 01/17/18 05:56 White Blood Count 6.7 TH/MM3 Red Blood Count 4.53 MIL/MM3 Hemoglobin 11.8 GM/DL Hematocrit 35.8 % Mean Corpuscular Volume 79.0 FL Mean Corpuscular Hemoglobin 26.1 PG Mean Corpuscular Hemoglobin Concent 33.0 % Red Cell Distribution Width 14.5 % Platelet Count 351 TH/MM3 Mean Platelet Volume 7.5 FL Neutrophils (%) (Auto) 63.7 % Lymphocytes (%) (Auto) 22.6 % Monocytes (%) (Auto) 10.3 % Eosinophils (%) (Auto) 2.9 % Basophils (%) (Auto) 0.5 % Neutrophils # (Auto) 4.3 TH/MM3 Lymphocytes # (Auto) 1.5 TH/MM3 Monocytes # (Auto) 0.7 TH/MM3 Eosinophils # (Auto) 0.2 TH/MM3 Basophils # (Auto) 0.0 TH/MM3 CBC Comment DIFF FINAL Differential Comment D-Dimer Quantitative (PE/DVT) 0.24 MG/L FEU Blood Urea Nitrogen 9 MG/DL Creatinine 0.84 MG/DL Random Glucose 103 MG/DL Total Protein 7.4 GM/DL Albumin 3.5 GM/DL Calcium Level 8.6 MG/DL Alkaline Phosphatase 63 U/L Aspartate Amino Transf (AST/SGOT) 18 U/L Alanine Aminotransferase (ALT/SGPT) 24 U/L Total Bilirubin 0.2 MG/DL Sodium Level 137 MEQ/L Potassium Level 3.7 MEQ/L Chloride Level 106 MEQ/L Carbon Dioxide Level 23.9 MEQ/L Anion Gap 7 MEQ/L Estimat Glomerular Filtration Rate 72 ML/MIN Troponin I LESS THAN 0.02 NG/ML B-Type Natriuretic Peptide 12 PG/ML [facility] Medical Record Reviewed: Yes Supervised Visit with JENNY: No Interpretation(s) Laboratory Tests Test 01/17/18 05:56 White Blood Count 6.7 TH/MM3 Red Blood Count 4.53 MIL/MM3 Hemoglobin 11.8 GM/DL Hematocrit 35.8 % Mean Corpuscular Volume 79.0 FL Mean Corpuscular Hemoglobin 26.1 PG Mean Corpuscular Hemoglobin Concent 33.0 % Red Cell Distribution Width 14.5 % Platelet Count 351 TH/MM3 Mean Platelet Volume 7.5 FL Neutrophils (%) (Auto) 63.7 % Lymphocytes (%) (Auto) 22.6 % Monocytes (%) (Auto) 10.3 % Eosinophils (%) (Auto) 2.9 % Basophils (%) (Auto) 0.5 % Neutrophils # (Auto) 4.3 TH/MM3 Lymphocytes # (Auto) 1.5 TH/MM3 Monocytes # (Auto) 0.7 TH/MM3 Eosinophils # (Auto) 0.2 TH/MM3 Basophils # (Auto) 0.0 TH/MM3 CBC Comment DIFF FINAL Differential Comment D-Dimer Quantitative (PE/DVT) 0.24 MG/L FEU Blood Urea Nitrogen 9 MG/DL Creatinine 0.84 MG/DL Random Glucose 103 MG/DL Total Protein 7.4 GM/DL Albumin 3.5 GM/DL Calcium Level 8.6 MG/DL Alkaline Phosphatase 63 U/L Aspartate Amino Transf (AST/SGOT) 18 U/L Alanine Aminotransferase (ALT/SGPT) 24 U/L Total Bilirubin 0.2 MG/DL Sodium Level 137 MEQ/L Potassium Level 3.7 MEQ/L Chloride Level 106 MEQ/L Carbon Dioxide Level 23.9 MEQ/L Anion Gap 7 MEQ/L Estimat Glomerular Filtration Rate 72 ML/MIN Troponin I LESS THAN 0.02 NG/ML B-Type Natriuretic Peptide 12 PG/ML Last Impressions Chest X-Ray 01/17/18 0550 Signed Impressions: Service Date/Time: Wednesday, January 17, 2018 06:07 - CONCLUSION: No evidence of acute cardiopulmonary disease. Royce Serna MD Shoulder X-Ray 01/17/18 0000 Signed Impressions: Service Date/Time: Wednesday, January 17, 2018 07:56 - CONCLUSION: No acute disease. Kenny Marx MD EKG reveals sinus rhythm with sinus arrhythmia. Inverted T-wave in lead 3. Differential Diagnosis Differential diagnosis includes dyspnea, bronchitis, pneumonia, pulmonary embolism, acute coronary syndrome, pleural effusion, cardiomyopathy, somatization, anxiety. Narrative Course The patient is a 47-year-old female was initially evaluated by the previous physician. Please refer to the initial history, physical, diagnostic evaluation , treatment modality plan. The patient was signed out at 7 AM with d-dimer pending. The patient's EKG is unremarkable. Chest x-rays clear. D-dimer is negative. BMP is normal. According to the previous physician the patient's symptoms appeared to be anxiety with multiple stress factors at home. Patient did complain of left shoulder pain, chest x-rays unremarkable. X-ray left shoulder was unremarkable. The patient was reevaluated a 8:22 AM. The patient' s workup is unremarkable, she is under a lot of stress with family issues at home, recent possible infection, and recent job change. She does complain of insomnia and waking up at night short of breath. Patient is going to follow-up with her primary physician, Dr. Esdras Darden, on an outpatient basis for workup of possible sleep apnea. However, she denies significant snoring or fatigue there are noted day. I will place the patient on Ativan at night as needed for insomnia. She is advised to follow-up with her primary physician. She will be provided a copy of the labs and x-ray results at discharge. Diagnosis Primary Impression: Panic attack Additional Impression: Stress reaction Patient Instructions: General Instructions Additional Instruction: Medications as directed. Return if symptoms worsen or progress. Follow-up with Dr. Esdras Darden. Please provide the patient a copy of her EKG, chest x- ray results, and lab results at discharge. Med/Other Pt SpecificInfo: Prescription(s) given Scripts Lorazepam (Ativan) 1 Mg Tab 1 MG PO HS Y for ANXIETY AND/OR AGITATION, #12 TAB 0 Refills Prov: Hero García MD 01/17/18 Disposition: DISCHARGE HOME Condition: Stable Hero García MD Jan 17, 2018 07:09
--- NOTE | 2018-01-17 08:08 | RADRPT ---
EXAM DATE/TIME: 01/17/2018 07:56 [facility] COMPARISON: No previous studies available for comparison. INDICATIONS : Patient fell last night and now has severe pain in left shoulder. MEDICAL HISTORY : prior fx left clavicle SURGICAL HISTORY : None. ENCOUNTER: Initial ACUITY: 1 day PAIN SCORE: 10/10 LOCATION: Left shoulder FINDINGS: Two view examination of the left shoulder demonstrates no evidence of fracture or dislocation. The g lenohumeral and acromioclavicular joints are maintained. Bony mineralization is normal. CONCLUSION: No acute disease. Kenny Marx MD on January 17, 2018 at 8:06 Board Certified Radiologist. This report was verified electronically.
[2018-01-17] MEDS ORDERED: LORA-474 PO (08:33)
[2018-01-17 08:51] VITALS: BP 129/78
--- NOTE | 2018-01-17 23:44 | EKG ---
Date Performed: 01/17/2018 Time Performed: 05:58:37 PTAGE: 47 years EKG: Sinus rhythm WITH SINUS ARRHYTHMIA NORMAL ECG PREVIOUS TRACING : 09/29/2017 04.56 Since the prior tracing, there has been no significant [place] DOCTOR: Miguel Ángel Wong Interpretating Date/Time 01/17/2018 23:44:42
== END 2018-01-17 08:52 | disposition home or self-care (01) ==
LOC: NEPE 05:25
DX: F41.0 Panic disorder [episodic paroxysmal anxiety] (principal); F43.9 Reaction to severe stress, unspecified; M25.512 Pain in left shoulder; G47.00 Insomnia, unspecified; R06.02 Shortness of breath; F31.9 Bipolar disorder, unspecified; I49.9 Cardiac arrhythmia, unspecified; Z79.51 Long term (current) use of inhaled steroids
CPT/HCPCS: 71045; 73030; 80053; 83880; 84484; 85025; 85379; 93005

== ENCOUNTER 2018-02-08 00:10 | Emergency (ER) | payer OTHER ==
[~2018-02-08] VITALS: Ht 167.6 cm; Wt 109.0 kg
[~2018-02-08 00:10] MED LIST changes: +LORA-474 PO; -PROM6.256 PO; -TRAM50TA PO
[2018-02-08 00:19] VITALS: BP 156/72; PULSE 88; RESP 20; TEMP 98; O2SAT 98
[2018-02-08 00:23] VITALS: BP 122/70; PULSE 71; RESP 20; TEMP 98; O2SAT 100
[2018-02-08 00:32] VITALS: RESP 20
[2018-02-08 00:41] LABS: AUTOMATED NEUTROPHIL # 5.3 TH/MM3 (1.8-7.7); BASOPHIL % 0.5 % (0.0-2.0); EOSINOPHIL # 0.3 TH/MM3 (0-0.4); EOSINOPHIL % 3.1 % (0.0-4.0); HEMATOCRIT 36.2 % (35.0-46.0); HEMOGLOBIN 11.8 GM/DL (11.6-15.3); LYMPH % 26.2 % (9.0-44.0); LYMPHOCYTE # 2.3 TH/MM3 (1.0-4.8); MEAN CELL VOLUME 78.6 FL (80.0-100.0); MEAN CORPUSCULAR HEMOGLOBIN 25.6 PG (27.0-34.0); MEAN CORPUSCULAR HGB CONC 32.5 % (32.0-36.0); MEAN PLATELET VOLUME 7.7 FL (7.0-11.0); MONOCYTE # 0.8 TH/MM3 (0-0.9); NEUT % 61.2 % (16.0-70.0); PLATELET COUNT 323 TH/MM3 (150-450); RED CELL DISTRIBUTION WIDTH 14.5 % (11.6-17.2); WHITE BLOOD COUNT 8.6 TH/MM3 (4.0-11.0)
--- NOTE | 2018-02-08 00:51 | PD ---
HPI Chief Complaint: Chest Pain Time Seen by Provider: 00:22 Travel History International Travel<30 days: No Contact w/Intl Traveler<30days: No Traveled to known affect area: No History of Present Illness HPI The patient is a 47 year old female who presents to the [facility] emergency department with a history of having a panic attack that occurred prior to arrival. She had chest pain over bilateral sides of her chest. She took a Vistaril prior to arrival. She has been under a great deal of stress. She is moving tomorrow. She has been arguing with her father for the last 4 days. She has a recent history of influenza and bronchitis. She continues to have cough and congestion. Her cough is productive of yellow sputum. She has had n/v x1 today. Review of systems, she denies any recent known fevers, neck pain, abdominal pain, diarrhea, urinary symptoms, or neurologic symptoms. The patient reports that she recently underwent a stress test that was negative. The patient reports the chest pain has improved since the Vistaril has become effective in her system . The patient reports that for years ago she was diagnosed with bipolar disorder. She has an appointment with her psychiatrist again scheduled for February 17. She reports that in the past she was on Seroquel and gabapentin which seemed to help with this. She is interested in going back on her medications. PCP: Dr. Esdras Darden LMP: one week ago. [facility] Past Medical History Narrative Medical The patient's past medical history is significant for anxiety, depression, history of panic disorder, history of being borderline diabetic, and bipolar disorder. The patient last underwent a stress test at this facility on October 06. This was a treadmill stress test that was reportedly negative and the chest pain center. Hx Anticoagulant Therapy: No Bipolar Disorder: Yes Anxiety: Yes (PANIC ATTACK) Depression: Yes Heart Rhythm Problems: No Cardiac Catheterization: No Cardiovascular Problems: No High Cholesterol: No Congestive Heart Failure: No Diabetes: No Diminished Hearing: No Endocrine: No Gastrointestinal Disorders: No Genitourinary: No Headaches: Yes Heparin Induced Thrombocytopen: No Hypertension: No Immune Disorder: No Implanted Vascular Access Dvce: No Musculoskeletal: No Neurologic: No Psychiatric: Yes Reproductive: No Respiratory: No Immunizations Current: Yes Tetanus Vaccination: Unknown Influenza Vaccination: No ?: Not Past Surgical History Narrative Surgical The patient's past surgical history is significant for cholecystectomy. Abdominal Surgery: Yes (gallbladder) Cardiac Surgery: No Cholecystectomy: Yes Coronary Artery Bypass Graft: No Ear Surgery: No Endocrine Surgery: No Eye Surgery: No Genitourinary Surgery: No Gynecologic Surgery: No Neurologic Surgery: No Oral Surgery: No Thoracic Surgery: No Other Surgery: Yes (bunectomy) Family History Family Myocardial Infarction: Yes (Brother age 40's) Social History Alcohol Use: Yes (occ) Tobacco Use: No Substance Use: No Allergies-Medications (Allergen,Severity, Reaction): Coded Allergies: No Known Allergies (Unverified Allergy, Unknown, 02/08/18) Reported Meds & Prescriptions Reported Meds & Active Scripts Active Seroquel (Quetiapine Fumarate) 25 Mg Tab 25 Mg PO BID Ativan (Lorazepam) 1 Mg Tab 1 Mg PO HS PRN Vistaril Review of Systems Except as stated in HPI: all other systems reviewed are Neg General / Constitutional: No: Fever Eyes: No: Visual changes HENT: Positive: Congestion, No: Headaches Cardiovascular: Positive: Chest Pain or Discomfort, Dyspnea on exertion Respiratory: Positive: Cough, No: Shortness of Breath Gastrointestinal: Positive: Nausea, Vomiting, No: Abdominal Pain Genitourinary: No: Dysuria Musculoskeletal: No: Pain Skin: No Rash Neurologic: No: Weakness Psychiatric: Positive: Anxiety, No: Depression Endocrine: No: Polydipsia Hematologic/Lymphatic: No: Easy Bruising Physical Exam Narrative General: The patient is a well-developed well-nourished female in no acute distress. Head and Neck exam: Head is normocephalic atraumatic. Eyes: EOMI, pupils are equal round and reactive to light. Nose: Midline septum with pink mucous membranes Mouth: Dentition unremarkable. Moist mucus membranes. Posterior oropharynx is not erythematous. No tonsillar hypertrophy. Uvula midline. Airway patent. Neck: No palpable lymphadenopathy. No nuchal rigidity. No thyromegaly. Cardiovascular: Regular rate and rhythm without murmurs, gallops, or rubs. Lungs: Clear to auscultation bilaterally. No wheezes, rhonchi, or rales. Abdomen: Soft, without tenderness to palpation in all 4 quadrants of the abdomen. No guarding, rebound, or rigidity. Normal bowel sounds are audible. No tenderness on palpation of McBurney's point. Extremities: No clubbing, cyanosis, or edema. 2+ pulses in all 4 extremities. No calf tenderness on palpation. Back: No spinous process tenderness to palpation. No costovertebral angle tenderness to palpation. Neurologic Exam: Grossly nonfocal Skin Exam: No rash noted. Intact skin that is warm and dry. Data Data Last Documented VS Vital Signs Date Time Temp Pulse Resp B/P (MAP) Pulse Ox O2 Delivery O2 Flow Rate FiO2 02/08/18 00:32 20 02/08/18 00:23 98.0 71 100 Room Air Orders Orders Electrocardiogram (02/08/18:) Complete Blood Count With Diff (02/08/18:) Basic Metabolic Panel (Bmp) (02/08/18:) Creatine Kinase (Cpk) (02/08/18) Ckmb (Isoenzyme) Profile (02/08/18) Troponin I (02/08/18) Chest, Single Ap (02/08/18:) Iv Access Insert/Monitor (02/08/18) Ecg Monitoring (02/08/18) Oximetry (02/08/18:) Ed Urine Pregnancytest Poc (02/08/18:) CKMB (02/08/18 00:32) CKMB% (02/08/18:32) Acetaminophen (Tylenol) (02/08/18 01:30) Potassium Chloride (Kcl) (02/08/18 02:15) Labs Laboratory Tests Test 02/08/18 00:32 White Blood Count 8.6 TH/MM3 Red Blood Count 4.60 MIL/MM3 Hemoglobin 11.8 GM/DL Hematocrit 36.2 % Mean Corpuscular Volume 78.6 FL Mean Corpuscular Hemoglobin 25.6 PG Mean Corpuscular Hemoglobin Concent 32.5 % Red Cell Distribution Width 14.5 % Platelet Count 323 TH/MM3 Mean Platelet Volume 7.7 FL Neutrophils (%) (Auto) 61.2 % Lymphocytes (%) (Auto) 26.2 % Monocytes (%) (Auto) 9.0 % Eosinophils (%) (Auto) 3.1 % Basophils (%) (Auto) 0.5 % Neutrophils # (Auto) 5.3 TH/MM3 Lymphocytes # (Auto) 2.3 TH/MM3 Monocytes # (Auto) 0.8 TH/MM3 Eosinophils # (Auto) 0.3 TH/MM3 Basophils # (Auto) 0.0 TH/MM3 CBC Comment DIFF FINAL Differential Comment Blood Urea Nitrogen 13 MG/DL Creatinine 1.04 MG/DL Random Glucose 93 MG/DL Calcium Level 8.9 MG/DL Sodium Level 140 MEQ/L Potassium Level 3.3 MEQ/L Chloride Level 107 MEQ/L Carbon Dioxide Level 25.2 MEQ/L Anion Gap 8 MEQ/L Estimat Glomerular Filtration Rate 57 ML/MIN Total Creatine Kinase 187 U/L Creatine Kinase MB 3.7 NG/ML Troponin I LESS THAN 0.02 NG/ML MDM Medical Decision Making Medical Screen Exam Complete: Yes Emergency Medical Condition: Yes Medical Record Reviewed: Yes Differential Diagnosis Acute coronary syndrome, versus anxiety disorder, versus panic attack, versus acid reflux, versus pneumonia, versus bronchitis, versus allergy related symptoms Narrative Course During the course of the patient's emergency department visit, the patient's history, examination, and differential diagnosis were reviewed with the patient. The patient was placed on a cardiac care unit nurse with oximetry and frequent blood pressure monitoring. The patient had IV access obtained and blood work sent for analysis. The patient's electronic medical record was reviewed. The patient has been seen on multiple occasions since September with complaints of chest pain. The patient underwent a CTA to rule out PE that was negative for pulmonary embolism in September 2017 and also had a negative stress test. The patient has last been seen in the emergency department again with chest pain on January 17 with a negative d-dimer and cardiac enzymes. Patient had an EKG done today that shows a sinus rhythm heart rate of 66, QRS duration 84 ms, QTC [address] segment elevation. T waves are inverted in V1. The patient was initially provided Tylenol for pain. The patient's laboratory studies were reviewed and remarkable for white count of 8.6, hemoglobin 11.8, platelets 323 with 9 monocytes, basic metabolic profile is remarkable for potassium of 3.3 which was supplemented orally, creatinine 1.04, cardiac enzymes within normal limits Radiology studies were reviewed and remarkable for a chest x-ray that shows no acute cardiopulmonary disease. I had a lengthy discussion with the patient regarding her psychiatric history. She reports that [facility] has worked for her in the past and she has a follow- up appointment scheduled with her psychiatrist, Dr. Chambers or February 17. She was encouraged to keep the appointment. She was started back on a low-dose of Seroquel at 25 mg twice a day. She denies having any suicidal homicidal ideations. She is instructed to follow back up immediately if she develops any suicidal ideations. The patient's symptoms are unlikely to be related to cardiac disease as the patient has had a recent negative stress test and a negative CTA to rule out PE, and the patient's symptoms improved with Vistaril. The patient is resting comfortably and feels better, is alert and in no distress. The patient's results and examination findings were discussed with the patient. The repeat examination is unremarkable and benign. The history, exam, diagnostic testing, and current condition do not suggest any significant pathology to warrant further testing, continued ED treatment, admission, or surgical evaluation at this point. The vital signs have been stable. The patient does not have uncontrollable pain, intractable vomiting, or other significant symptoms. The patient's condition is stable and appropriate for discharge. The patient will pursue further outpatient evaluation with a primary care physician or other designated or consulting physician as indicated in the discharge instructions. The patient expressed understanding and was agreeable with this plan. Diagnosis Primary Impression: Atypical chest pain Additional Impression: Anxiety disorder Qualified Codes: F41.9 - Anxiety disorder, unspecified Referrals: Primary Care Physician 2 days Psychiatrist 1 week Patient Instructions: Anxiety (ED), Chest Pain (ED), General Instructions Departure Forms: Tests/Procedures Med/Other Pt SpecificInfo: Prescription(s) given Scripts Quetiapine (Seroquel) 25 Mg Tab 25 MG PO BID, #30 TAB 0 Refills Prov: Manju Angeles MD 02/08/18 Disposition: 01 DISCHARGE HOME Condition: Stable Manuj Angeles MD Feb 08, 2018 00:51
--- NOTE | 2018-02-08 00:59 | RADRPT ---
EXAM DATE/TIME: 02/08/2018 00:40 [facility] COMPARISON: CHEST SINGLE AP, January 17, 2018, 6:07. INDICATIONS : Chest pain. MEDICAL HISTORY : None. SURGICAL HISTORY : Cholecystectomy. Collar bone fracture repair. Bunionectomy. ENCOUNTER: Initial ACUITY: 1 day PAIN SCORE: 10/10 LOCATION: Bilateral chest FINDINGS: A single view of the chest demonstrates the lungs to be symmetrically aerated without evidence of mas s, infiltrate or effusion. The cardiomediastinal contours are unremarkable. Osseous structures are intact. CONCLUSION: No acute disease. Rey Samuels MD on February 08, 2018 at 0:57 Board Certified Radiologist. This report was verified electronically.
[2018-02-08 01:07] LABS: BICARBONATE 25.2 MEQ/L (21.0-32.0); BLOOD UREA NITROGEN 13 MG/DL (7-18); CALCIUM 8.9 MG/DL (8.5-10.1); CHLORIDE 107 MEQ/L (98-107); CREATININE 1.04 MG/DL (0.50-1.00); GLOMERULAR FILTRATION RATE 57 ML/MIN (>89); GLUCOSE,RANDOM 93 MG/DL (74-106); SODIUM (NA) 140 MEQ/L (136-145)
[2018-02-08 01:11] LABS: TROPONIN I LESS THAN 0.02 NG/ML (0.02-0.05)
[2018-02-08] MEDS ORDERED: ACETAMINOPHEN 325 MG TAB PO ONE (01:30)
[2018-02-08] MEDS ORDERED: POTASSIUM CHLORIDE 20 MEQ CONTROLLED RELEASE TAB PO ONE (02:15)
[2018-02-08] MEDS ORDERED: SERO25TA PO (02:25)
[2018-02-08 02:42] VITALS: RESP 20
--- NOTE | 2018-02-08 12:16 | EKG ---
Date Performed: 02/08/2018 Time Performed: 00:25:54 PTAGE: 47 years EKG: Sinus rhythm NORMAL ECG PREVIOUS TRACING : 01/17/2018 05.58 Since the previous tracing, no significant change noted DOCTOR: Salomon Newell Interpretating Date/Time 02/08/2018 12:13:45
== END 2018-02-08 05:31 | disposition home or self-care (01) ==
LOC: NEPC 00:10
DX: R07.89 Other chest pain (principal); F41.0 Panic disorder [episodic paroxysmal anxiety]; F31.9 Bipolar disorder, unspecified; R73.03 Prediabetes
CPT/HCPCS: 71045; 80048; 82550; 82552; 84484; 84703; 85025; 93005; 99285